=== PATIENT | male | born 1970 | race African-American/Black ===

== ENCOUNTER 2020-01-31 07:07 | Inpatient (IN) | payer SELFPAY ==
[2020-01-31] MEDS ORDERED: FUROSEMIDE 40 MG/4 ML VIAL ONE ×2 (07:35→09:38)
[2020-01-31 07:47] LABS: Basophils % 1.3 % (0-1.3); Hematocrit 29.6 % (39.6-49.0); Lymphocytes % 20.4 % (15.3-44.8); MPV 8.7 fL (7.6-11.3); RBC Red Blood Cell Count 3.49 M/uL (4.33-5.43)
[2020-01-31 07:49] LABS: Protime INR 1.01
[2020-01-31] MEDS ORDERED: METHYLPREDNISOLONE 125 MG INJ ONE (07:50)
[2020-01-31] MEDS ORDERED: NITROGLYCERIN 1 GM PKT TD ONE ×2 (07:50→08:09)
[2020-01-31] MEDS ORDERED: IPRATROPIUM BROM 0.5MG/2.5ML ONE (07:51)
[2020-01-31] MEDS ORDERED: LEVALBUTEROL 1.25 MG/3 ML NEB ONE (07:51)
[2020-01-31 08:21] LABS: Arterial Blood Carboxyhemoglob 1.6 % (0-1.5); Blood Gas Oxyhemoglobin 90.9 % (94-97); Blood O2 Saturation 93.3 % (92-98.5)
[2020-01-31 08:27] LABS: ALT/SGPT 43 U/L (12-78); AST/SGOT 45 U/L (15-37); Albumin 1.6 g/dL (3.4-5.0); Alkaline Phosphatase 88 U/L (45-117); BUN Blood Urea Nitrogen 36 mg/dL (7-18); Bicarbonate 25 mmol/L (21-32); Bilirubin Direct < 0.1 mg/dL (0-0.2); Bilirubin Total 0.2 mg/dL (0.2-1.0); Glucose Level 105 mg/dL (74-106); Magnesium 1.2 mg/dL (1.8-2.4); Potassium 3.1 mmol/L (3.5-5.1); Protein, Total 4.9 g/dL (6.4-8.2); Sodium Level 147 mmol/L (136-145); Troponin I 0.19 ng/mL (0.0-0.045)
--- NOTE | 2020-01-31 08:46 | EDPHYS ---
Physician Documentation [facility] Name: Macario Hubbard Age: 49 yrs Sex: Male : 1970 Arrival Date: 01/31/2020 Time: 07:11 Bed 6 Private MD: ED Physician Donte Wood HPI: 01/30 07:30 This 49 yrs old Black Male presents to ER via EMS with complaints of Shortness Of jose Breath. 07:30 The patient has shortness of breath at rest, with light activity, that woke him/her jose from sleep. Onset: The symptoms/episode began/occurred 2 day(s) ago. Duration: The symptoms are continuous, and are steadily getting worse. The patient's shortness of breath is aggravated by exertion, light activity, supine position. Associated signs and symptoms: Pertinent positives: non-productive cough. Severity of symptoms: At their worst the symptoms were mild moderate in the emergency department the symptoms are unchanged. The patient has experienced similar episodes in the past, a few times. Historical: - Allergies: 07:19 Tramadol HCl; tw2 - Home Meds: 07:19 carvedilol 25 mg oral tab 1.5 tab 2 times per day [Active]; furosemide 20 mg Oral tab 1 tw2 tab once daily [Active]; furosemide 40 mg Oral tab 1 tab 2 times per day [Active]; atorvastatin 20 mg oral tab 1 tab once daily [Active]; ferrous sulfate 325 mg (65 mg iron) Oral TbEC [Active]; pantoprazole 40 mg oral TbEC 1 tab once daily [Active]; - PMHx: 07:19 Diabetes - NIDDM; Myocardial infarction; CVA; tw2 10:07 Hepatitis; CHF; High Cholesterol; jl7 - PSHx: 07:19 Heart stents; Hernia repair; tw2 - Immunization history:: Adult Immunizations. - Social history:: Smoking status: . - Family history:: not pertinent. ROS: 07:30 Constitutional: Negative for fever, chills, and weight loss, Eyes: Negative for injury, jose pain, redness, and discharge, ENT: Negative for injury, pain, and discharge, Neck: Negative for injury, pain, and swelling, Cardiovascular: Negative for chest pain, palpitations, and edema, Abdomen/GI: Negative for abdominal pain, nausea, vomiting, diarrhea, and constipation, Back: Negative for injury and pain, : Negative for injury, bleeding, discharge, and swelling, Skin: Negative for injury, rash, and discoloration, Neuro: Negative for headache, weakness, numbness, tingling, and seizure. 07:30 Respiratory: Positive for cough, orthopnea, shortness of breath, wheezing. 07:30 MS/extremity: Positive for swelling, of the right leg and left leg. Exam: 07:30 Constitutional: This is a well developed, well nourished patient who is awake, alert, jose and in no acute distress. Head/Face: Normocephalic, atraumatic. Eyes: Pupils equal round and reactive to light, extra-ocular motions intact. Lids and lashes normal. Conjunctiva and sclera are non-icteric and not injected. Cornea within normal limits. Periorbital areas with no swelling, redness, or edema. ENT: Nares patent. No nasal discharge, no septal abnormalities noted. Tympanic membranes are normal and external auditory canals are clear. Oropharynx with no redness, swelling, or masses, exudates, or evidence of obstruction, uvula midline. Mucous membranes moist. Neck: Trachea midline, no thyromegaly or masses palpated, and no cervical lymphadenopathy. Supple, full range of motion without nuchal rigidity, or vertebral point tenderness. No Meningismus. Chest/axilla: Normal chest wall appearance and motion. Nontender with no deformity. No lesions are appreciated. Cardiovascular: Regular rate and rhythm with a normal S1 and S2. No gallops, murmurs, or rubs. Normal PMI, no JVD. No pulse deficits. Abdomen/GI: Soft, non-tender, with normal bowel sounds. No distension or tympany. No guarding or rebound. No evidence of tenderness throughout. Back: No spinal tenderness. No costovertebral tenderness. Full range of motion. Male : Normal genitalia with no discharge or lesions. Skin: Warm, dry with normal turgor. Normal color with no rashes, no lesions, and no evidence of cellulitis. 07:30 Respiratory: mild respiratory distress is noted, Respirations: labored breathing, that is mild, that is moderate, Breath sounds: rales, that are mild, are located in both bases, decreased breath sounds, wheezing: expiratory 07:30 Musculoskeletal/extremity: ROM: full active range of motion, full passive range of motion, Circulation is intact in all extremities. Sensation intact. Compartment Syndrome exam of affected extremity: is normal. DVT Exam: no pain, no tenderness, negative Homans' sign noted on exam, no appreciated bluish discoloration, no erythema, no increased warmth, swelling. Vital Signs: 07:11 BP 160 / 107; Pulse 100; Resp 28; Temp 98.8(TE); Pulse Ox 97% on R/A; Weight 113.4 kg tw2 (R); Height 5 ft. 10 in. (177.80 cm); Pain 0/10; 08:18 BP 158 / 113; Pulse 90; Resp 23; Pulse Ox 100% on Nebulizer Mask; jl7 08:30 BP 158 / 112; Pulse 88; Resp 26; Pulse Ox 100% on 2 lpm NC; jl7 09:00 BP 163 / 119; Pulse 104; Resp 15; Pulse Ox 100% on 2 lpm NC; jl7 09:30 BP 154 / 115; Pulse 85; Resp 22 S; Pulse Ox 100% on 2 lpm NC; jl7 10:30 BP 140 / 104; Pulse 79; Resp 19; Pulse Ox 100% on 2 lpm NC; tw2 11:30 BP 136 / 105; Pulse 76; Resp 17; Pulse Ox 100% on 2 lpm NC; tw2 12:10 BP 143 / 109; Pulse 75; Resp 19; Pulse Ox 100% 2 lpm ; jl7 07:11 Body Mass Index 35.87 (113.40 kg, 177.80 cm) tw2 07:11 pt c/o SOB and has increase RR, placed on 2L nc at this time tw2 MDM: 07:21 Patient medically screened. jose 07:34 Differential diagnosis: asthma, Bronchitis CHF exacerbation, Chronic Obstructive jose Pulmonary Disease Myocardial Infarction pneumonia, Pneumothorax Psychogenic pulmonary edema, Pulmonary Embolism reactive airway disease, Unstable Angina. Antibiotic administration: Not indicated. The patient's Wells Deep Vein Thrombosis Score was calculated as follows: Total Score: 0-2 Pts- Low Risk. The patient's pulmonary embolism risk score was calculated as follows: Total Score: 0-2 points. This patient was found to be at low risk for a pulmonary embolism by using the Well's assessment criteria. Immunization status:. Data reviewed: vital signs, nurses notes, lab test result(s), EKG, radiologic studies. Data interpreted: cook helper preserves: rate is 100 beats/min, rhythm is regular, Pulse oximetry: on room air is 97 %. Test interpretation: by ED physician or midlevel provider: ECG, plain radiologic studies. Counseling: I had a detailed discussion with the patient and/or guardian regarding: the historical points, exam findings, and any diagnostic results supporting the discharge/admit diagnosis, the presence of at least one elevated blood pressure reading (>120/80) during this emergency department visit, lab results, radiology results, the need for further work-up and treatment in the hospital. Medication response: lasix, mso4, nebs. 08:37 ED course: sob improved. [facility] 01/30 07:30 Order name: Basic Metabolic Panel [facility] 01/30 07:30 Order name: CBC with Diff [facility] 01/30 07:30 Order name: LFT's [facility] 01/30 07:30 Order name: Magnesium [facility] 01/30 07:30 Order name: PT-INR [facility] 01/30 07:30 Order name: Troponin (emerg Dept Use Only) [facility] 01/30 08:11 Order name: CBC with Automated Diff; Complete Time: 08:32 [facility] 01/30 08:11 Order name: Protime (+INR); Complete Time: 08:32 [facility] 01/30 08:23 Order name: ABG Arterial Blood Gas; Complete Time: 08:32 [facility] 01/30 08:30 Order name: Basic Metabolic Panel; Complete Time: 08:32 [facility] 01/30 08:30 Order name: Liver (Hepatic) Function; Complete Time: 08:32 [facility] 01/30 08:30 Order name: Troponin I; Complete Time: 08:32 [facility] 01/30 08:30 Order name: Magnesium; Complete Time: 08:32 [facility] 01/30 10:07 Order name: COVID-19 01/30 07:30 Order name: XRAY Chest (1 view) [facility] 01/30 07:30 Order name: BIPAP [facility] 01/30 08:35 Order name: CT Stone Protocol; Complete Time: 10:20 [facility] 01/30 08:42 Order name: Chest Single View; Complete Time: 10:20 [facility] 01/30 10:42 Order name: CORONAVIRUS [facility] 01/30 12:02 Order name: SARS-COV-2 RT PCR [facility] 01/30 12:09 Order name: Urine Dipstick--Ancillary (enter results) 01/30 07:30 Order name: EKG; Complete Time: 08:12 [facility] 01/30 07:30 Order name: Cardiac monitoring; Complete Time: 07:43 [facility] 01/30 07:30 Order name: EKG - Nurse/Tech; Complete Time: 07:34 jose 01/30 07:30 Order name: IV Saline Lock; Complete Time: 07:43 [facility] 01/30 07:30 Order name: Labs collected and sent; Complete Time: 07:43 [facility] 01/30 07:30 Order name: O2 Per Protocol; Complete Time: 07:43 [facility] 01/30 07:30 Order name: O2 Sat Monitoring; Complete Time: 07:43 [facility] 01/30 07:30 Order name: Urine Dipstick-Ancillary (obtain specimen); Complete Time: 12:07 [facility] Administered Medications: 07:25 Drug: Lasix 40 mg Route: IVP; Site: right wrist; tw2 09:38 Follow up: Urine output 0 ml; Response: No adverse reaction jl7 07:50 Drug: SOLU-Medrol 125 mg Route: IVP; Site: right wrist; jl7 09:38 Follow up: Response: No adverse reaction jl7 08:03 Drug: AtroVENT Aerosol 0.5 mg Route: Inhalation; jl7 11:52 Follow up: Response: No adverse reaction jl7 08:04 Drug: Nitro-Bid Ointment 2 % 1 inches Route: Transdermal; Site: anterior chest wall; jl7 09:20 Follow up: Response: No adverse reaction; Ointment removed per Dr. Jaimes jl7 08:04 Drug: Xopenex 2.5 mg Route: Inhalation; jl7 11:52 Follow up: Response: No adverse reaction jl7 09:10 Drug: Aspirin Chewable Tablet 324 mg Route: PO; jl7 09:37 Follow up: Response: No adverse reaction jl7 09:10 Drug: Pepcid 20 mg Route: IVP; Site: right wrist; jl7 09:37 Follow up: Response: No adverse reaction jl7 09:15 Drug: Potassium Effervescent Tablet 50 mEq Route: PO; jl7 09:37 Follow up: Response: No adverse reaction jl7 09:15 Drug: Magnesium Sulfate 1 grams Route: IVPB; Infused Over: 1 hrs; Site: right wrist; jl7 10:15 Follow up: Response: No adverse reaction; IV Status: Completed infusion jl7 09:25 Drug: Lasix 40 mg Route: IVP; Site: right wrist; jl7 11:51 Follow up: Urine output 300 ml; Response: No adverse reaction jl7 09:28 Not Given (Physician Discretion): Trandate 20 mg IVP once; Over 2 minutes jl7 09:28 Not Given (Physician Discretion): Heparin (SC-Bolus No thrombolytic) - HEParin 60 jl7 units/kg IVP once; Max 5000 units 09:28 Not Given (Physician Discretion): Heparin ([place] Drip) 12 units/kg/hr - (HEParin 49464 jl7 units, D5W 500 ml) IV at calculated rate Per protocol; Max initial rate 1000 units/hr 09:50 Drug: Coreg 25 mg Route: PO; jl7 10:30 Follow up: Response: No adverse reaction; Blood pressure is lowered jl7 Disposition: 01/31/20 08:45 Hospitalization ordered by Nick Jaimes for Inpatient Admission. Preliminary diagnosis are Dyspnea, Essential (primary) hypertension, Acute kidney failure, Hypomagnesemia, Hypocalcemia, Edema, unspecified, Type 2 diabetes mellitus, Hypokalemia, Non-ST elevation (NSTEMI) myocardial infarction, Pleural effusion in conditions classified elsewhere. - Bed requested for Telemetry/MedSurg (Inpatient). - Status is Inpatient Admission. jl7 - Condition is Fair. - Problem is new. - Symptoms have improved. Signatures: Dispatcher [employer] EDMartha Ontiveros RN RN dw Anderson, Corey, MD MD cha Wise, Tara RN RN tw2 Anna Pham RN RN jl7 Corrections: (The following items were deleted from the chart) 10: 08:45 Hospitalization Ordered by Nick Jaimes DO for Inpatient Admission. Preliminary jose diagnosis is Dyspnea; Essential (primary) hypertension; Acute kidney failure; Hypomagnesemia; Hypocalcemia; Edema, unspecified; Type 2 diabetes mellitus; Hypokalemia; Non-ST elevation (NSTEMI) myocardial infarction. Bed requested for Telemetry/MedSurg (Inpatient). Status is Inpatient Admission. Condition is Fair. Problem is new. Symptoms have improved. jose 12:13 10:21 01/31/2020 08:45 Hospitalization Ordered by Nick Jaimes DO for Inpatient dw Admission. Preliminary diagnosis is Dyspnea; Essential (primary) hypertension; Acute kidney failure; Hypomagnesemia; Hypocalcemia; Edema, unspecified; Type 2 diabetes mellitus; Hypokalemia; Non-ST elevation (NSTEMI) myocardial infarction; Pleural effusion in conditions classified elsewhere. Bed requested for Telemetry/MedSurg (Inpatient). Status is Inpatient Admission. Condition is Fair. Problem is new. Symptoms have improved. jose 12:38 12:13 01/31/2020 08:45 Hospitalization Ordered by Nick Jaimes DO for Inpatient jl7 Admission. Preliminary diagnosis is Dyspnea; Essential (primary) hypertension; Acute kidney failure; Hypomagnesemia; Hypocalcemia; Edema, unspecified; Type 2 diabetes mellitus; Hypokalemia; Non-ST elevation (NSTEMI) myocardial infarction; Pleural effusion in conditions classified elsewhere. Bed requested for Telemetry/MedSurg (Inpatient). Status is Inpatient Admission. Condition is Fair. Problem is new. Symptoms have improved. dw
--- NOTE | 2020-01-31 08:46 | ER ---
Nurse's Notes [facility] Name: Macario Hubbard Age: 49 yrs Sex: Male : 1970 Arrival Date: 01/31/2020 Time: 07:11 Bed 6 Private MD: Diagnosis: Dyspnea;Essential (primary) hypertension;Acute kidney failure;Hypomagnesemia;Hypocalcemia;Edema, unspecified;Type 2 diabetes mellitus;Hypokalemia;Non-ST elevation (NSTEMI) myocardial infarction;Pleural effusion in conditions classified elsewhere Presentation: 01/30 07:11 Chief complaint: EMS states: pt c/o SOB just this morning, hx CHF, hep B \T\ C, tw2 hypertensive this morning but did not take his blood pressure medicine. Coronavirus screen: At this time, the client does not indicate any symptoms associated with coronavirus-19. Ebola Screen: Patient denies travel to an Ebola-affected area in the 21 days before illness onset. Initial Sepsis Screen: Does the patient meet any 2 criteria? RR > 20 per min. HR > 90 bpm. Does the patient have a suspected source of infection? No. Patient's initial sepsis screen is negative. Risk Assessment: Do you want to hurt yourself or someone else? Patient reports no desire to harm self or others. Onset of symptoms was January 31, 2020. 07:11 Method Of Arrival: EMS: [facility] tw2 07:11 Acuity: TIGRE 2 tw2 07:19 Note MD notified of pts condition. tw2 Triage Assessment: 07:15 General: Appears in no apparent distress. Behavior is calm, cooperative, appropriate tw2 for age. Pain: Denies pain. Cardiovascular: Edema is 3+ to left midcalf, left ankle, right midcalf and right ankle. Respiratory: Reports shortness of breath at rest on exertion Onset: The symptoms/episode began/occurred this morning, the patient has moderate shortness of breath. Historical: - Allergies: 07:19 Tramadol HCl; tw2 - Home Meds: 07:19 carvedilol 25 mg oral tab 1.5 tab 2 times per day [Active]; furosemide 20 mg Oral tab 1 tw2 tab once daily [Active]; furosemide 40 mg Oral tab 1 tab 2 times per day [Active]; atorvastatin 20 mg oral tab 1 tab once daily [Active]; ferrous sulfate 325 mg (65 mg iron) Oral TbEC [Active]; pantoprazole 40 mg oral TbEC 1 tab once daily [Active]; - PMHx: 07:19 Diabetes - NIDDM; Myocardial infarction; CVA; tw2 10:07 Hepatitis; CHF; High Cholesterol; jl7 - PSHx: 07:19 Heart stents; Hernia repair; tw2 - Immunization history:: Adult Immunizations. - Social history:: Smoking status: . - Family history:: not pertinent. Screenin:19 Abuse screen: Denies threats or abuse. Nutritional screening: No deficits noted. tw2 Tuberculosis screening: No symptoms or risk factors identified. Fall Risk None identified. Assessment: 07:25 General: Appears in no apparent distress. Behavior is calm, cooperative, appropriate tw2 for age. Pain: Denies pain. Neuro: Level of Consciousness is awake, alert, obeys commands, Oriented to person, place, time, situation. Cardiovascular: Heart tones S1 S2 Patient's skin is warm and dry. Rhythm is regular. Cardiovascular: Edema is 3+ to left midcalf, left ankle, right midcalf and right ankle. Respiratory: Airway is patent Respiratory effort is even, unlabored, Respiratory pattern is regular, symmetrical, tachypnea Breath sounds with wheezes bilaterally. GI: No signs and/or symptoms were reported involving the gastrointestinal system. Abdomen is round non-distended, obese, Bowel sounds present X 4 quads. : Reports swelling in testicles. EENT: No signs and/or symptoms were reported regarding the EENT system. Derm: No signs and/or symptoms reported regarding the dermatologic system. Skin is intact, is healthy with good turgor, Skin is dry, Skin temperature is warm. Musculoskeletal: Range of motion: intact in all extremities. 07:26 Reassessment: provider at bedside at this time. tw2 08:43 Reassessment: Patient appears in no apparent distress at this time. Patient and/or tw2 family updated on plan of care and expected duration. Pain level reassessed. Patient is alert, oriented x 3, equal unlabored respirations, skin warm/dry/pink. Patient states feeling better. Patient states symptoms have improved. 09:20 Reassessment: Dr. Jaimes at bedside, VO to cancel heparin and cancel Trandate, VO for jl7 additional 40 mg Lasix IVP. 11:47 Reassessment: Dr. Gann at bedside. jl7 Vital Signs: 07:11 BP 160 / 107; Pulse 100; Resp 28; Temp 98.8(TE); Pulse Ox 97% on R/A; Weight 113.4 kg tw2 (R); Height 5 ft. 10 in. (177.80 cm); Pain 0/10; 08:18 BP 158 / 113; Pulse 90; Resp 23; Pulse Ox 100% on Nebulizer Mask; jl7 08:30 BP 158 / 112; Pulse 88; Resp 26; Pulse Ox 100% on 2 lpm NC; jl7 09:00 BP 163 / 119; Pulse 104; Resp 15; Pulse Ox 100% on 2 lpm NC; jl7 09:30 BP 154 / 115; Pulse 85; Resp 22 S; Pulse Ox 100% on 2 lpm NC; jl7 10:30 BP 140 / 104; Pulse 79; Resp 19; Pulse Ox 100% on 2 lpm NC; tw2 11:30 BP 136 / 105; Pulse 76; Resp 17; Pulse Ox 100% on 2 lpm NC; tw2 12:10 BP 143 / 109; Pulse 75; Resp 19; Pulse Ox 100% 2 lpm ; jl7 07:11 Body Mass Index 35.87 (113.40 kg, 177.80 cm) tw2 07:11 pt c/o SOB and has increase RR, placed on 2L nc at this time tw2 ED Course: 07:11 Patient arrived in ED. tw2 07:11 Bed in low position. Call light in reach. Side rails up X 1. conveyor monitor on. Pulse tw2 ox on. NIBP on. 07:15 Triage completed. tw2 07:15 Arm band placed on. EKG completed in triage. Results shown to MD. tw2 07:20 Missed attempt(s): 20 gauge in left wrist. Bleeding controlled, band aid applied, jl7 catheter tip intact. 07:21 Donte Wood MD is Attending Physician. jose 07:25 Initial lab(s) drawn, by co, sent to lab. Inserted saline lock: 20 gauge in right jl7 wrist, using aseptic technique. Blood collected. 07:34 EKG done, by ED staff, reviewed by Donte Wood MD. em1 07:44 Anna Pham RN is Primary Nurse. jl7 08:30 Notified ED physician of a critical lab result(s). Calcium 6.1 and Magnesium 1.2. aa5 08:[address] sw 08:43 Nick Jaimes DO is Hospitalizing Provider. jose 08:47 Chest Single View In Process Unspecified. EDMS 08:50 CT completed. Patient tolerated procedure well. Patient moved back from CT. sw 08:57 CT Stone Protocol In Process Unspecified. EDMS 12:10 Covid results back Negative per Florencia in Er. Room assigned. dw 12:19 No provider procedures requiring assistance completed. Patient admitted, IV remains in jl7 place. intact, No redness/swelling at site. Administered Medications: 07:25 Drug: Lasix 40 mg Route: IVP; Site: right wrist; tw2 09:38 Follow up: Urine output 0 ml; Response: No adverse reaction jl7 07:50 Drug: SOLU-Medrol 125 mg Route: IVP; Site: right wrist; jl7 09:38 Follow up: Response: No adverse reaction jl7 08:03 Drug: AtroVENT Aerosol 0.5 mg Route: Inhalation; jl7 11:52 Follow up: Response: No adverse reaction jl7 08:04 Drug: Nitro-Bid Ointment 2 % 1 inches Route: Transdermal; Site: anterior chest wall; jl7 09:20 Follow up: Response: No adverse reaction; Ointment removed per Dr. Jaimes jl7 08:04 Drug: Xopenex 2.5 mg Route: Inhalation; jl7 11:52 Follow up: Response: No adverse reaction jl7 09:10 Drug: Aspirin Chewable Tablet 324 mg Route: PO; jl7 09:37 Follow up: Response: No adverse reaction jl7 09:10 Drug: Pepcid 20 mg Route: IVP; Site: right wrist; jl7 09:37 Follow up: Response: No adverse reaction jl7 09:15 Drug: Potassium Effervescent Tablet 50 mEq Route: PO; jl7 09:37 Follow up: Response: No adverse reaction jl7 09:15 Drug: Magnesium Sulfate 1 grams Route: IVPB; Infused Over: 1 hrs; Site: right wrist; jl7 10:15 Follow up: Response: No adverse reaction; IV Status: Completed infusion jl7 09:25 Drug: Lasix 40 mg Route: IVP; Site: right wrist; jl7 11:51 Follow up: Urine output 300 ml; Response: No adverse reaction jl7 09:28 Not Given (Physician Discretion): Trandate 20 mg IVP once; Over 2 minutes jl7 09:28 Not Given (Physician Discretion): Heparin ([place]-Bolus No thrombolytic) - HEParin 60 jl7 units/kg IVP once; Max 5000 units 09:28 Not Given (Physician Discretion): Heparin ([place] Drip) 12 units/kg/hr - (HEParin 97417 jl7 units, D5W 500 ml) IV at calculated rate Per protocol; Max initial rate 1000 units/hr 09:50 Drug: Coreg 25 mg Route: PO; jl7 10:30 Follow up: Response: No adverse reaction; Blood pressure is lowered jl7 Intake: Output: 09:38 Urine: 0ml; Total: 0ml. jl7 11:51 Urine: 300ml; Total: 300ml. jl7 Outcome: 08:45 Decision to Hospitalize by Provider. jose 12:19 Admitted to Tele accompanied by tech, via wheelchair, room 206, with oxygen, with jl7 chart, Report called to FREEMAN Richter 12:19 Condition: stable 12:19 Discharge instructions given to patient, Instructed on the need for admit, Demonstrated understanding of instructions. 12:38 Patient left the ED. jl7 Signatures: Dispatcher [employer] Martha Estrada RN RN dw Anderson, Corey, MD MD cha Martinez, Eric em1 Florencia Fabian, FREEMAN RN aa5 Loren May Tara RN RN tw2 Anna Pham RN RN jl7 Corrections: (The following items were deleted from the chart) 08:21 08:17 Reassessment: pt placed on bipap at this time. tw2 tw2 08:23 08:18 Pulse 90bpm; Resp 16bpm; Pulse Ox 100% BiPAP; tw2 tw2 10:15 08:18 BP 158 / 113; Pulse 90bpm; Resp 16bpm; Pulse Ox 100% Nebulizer Mask; tw2 jl7
[2020-01-31] MEDS ORDERED: HEPARIN 5000 UNIT/ML 1 ML VIAL ONE (08:58)
[2020-01-31] MEDS ORDERED: ASPIRIN 81 MG CHEWABLE TABLET ONE (08:58)
[2020-01-31] MEDS ORDERED: MAGNESIUM SULFATE 1 gm IVPB 1 GM/100 ML BAG IV ONE (08:58)
[2020-01-31] MEDS ORDERED: POTASSIUM 25 MEQ EFFERV TAB ONE (08:58)
[2020-01-31] MEDS ORDERED: LABETALOL 20 MG/4ML SYRINGE IV ONE (08:58)
[2020-01-31] MEDS ORDERED: FAMOTIDINE 20 MG/2 ML VIAL IV ONE (08:59)
[2020-01-31] MEDS ORDERED: HEPARIN/D5W 0 UNIT/0 ML BAG IV ONE (08:59)
--- NOTE | 2020-01-31 09:26 | RAD REPORT ---
EXAM DESCRIPTION: CT - Stone Protocol - 01/31/2020 8:54 am CLINICAL HISTORY: Abdominal pain. Flank pain COMPARISON: 2016 TECHNIQUE: Computed axial tomography of the abdomen pelvis was obtained without oral or IV contrast. Lack of IV and oral contrast limits evaluation of solid organs, bowel, and vessels. Coronal reformat fanny images were obtained and reviewed. All CT scans are performed using dose optimization technique as appropriate and may include automated exposure control or mA/KV adjustment according to patient size. FINDINGS: A renal calculus is not seen. An ureteral calculus is not noted. A bladder calculus is not present. Renal cysts without significant change 20 millimeter hepatic lesion left lobe liver is enlarged from the prior exam which measured 12 millim eters Spleen, pancreas and adrenals appear grossly normal There is no evidence of diverticulitis. The appendix appears normal Small pleural effusions. Diffuse edema within the subcutaneous tissues. Small amount of ascites. Left inguinal hernia repair. Small to moderate right inguinal hernia. Small hiatal hernia Ground-glass opacities right lower lobe IMPRESSION: Negative for a genitourinary calculus 20 millimeter hepatic lesion increased in size from 2016. Nonemergent MRI with contrast recommended Ground-glass opacities right lower lobe may indicate pneumonia or pneumonitis
--- NOTE | 2020-01-31 09:27 | RAD REPORT ---
EXAM DESCRIPTION: [place] Single View01/31/2020 8:18 am CLINICAL HISTORY: Shortness of breath COMPARISON: 2016 FINDINGS: Small bilateral pleural effusions. Mild right basilar opacity. The heart is normal size IMPRESSION: Small bilateral pleural effusions Mild right basilar opacity may represent pneumonia or pneumonitis
--- NOTE | 2020-01-31 09:42 | P.HP ---
Certification for Inpatient Patient admitted to: Inpatient With expected LOS: >2 Midnights Patient will require the following post-hospital care: None Practitioner: I am a practitioner with admitting privileges, knowledge of patient current condition, hospital course, and medical plan of care. Services: Services provided to patient in accordance with Admission requirements found in Title 42 Section 412.3 of the Code of Federal Regulations Patient History Date of Service: 01/31/20 Primary Care Provider: None, seen at [facility]; Nephrology-Dr. Skinner Reason for admission: Shortness of breath, edema History of Present Illness: 49-year-old male with history of hypertension, CAD with prior stent, CHF, hepatitis-C, tobacco abuse and chronic renal disease. Patient reported increasing shortness of breaths over the last 24 hr. He also reported increasing edema to the lower extremities up to the thigh region. Kim ent mentioned that he had been at the [facility] about a month ago. He was seen for similar reasons. He was initially seen at [facility] [place] then transfer to [place]. There he had a heart catheterization, renal biopsy, and IV diuresis. He has not recall any other specifics. He does mention that he ran out of his diuretic medication within the past week. He was without medication for at least 3 days. He also reports that his Lasix had been increased from 20 mg daily to 120 mg twice daily. He denied any significant chest pain. He did report some nausea and vomiting. He does mention a fluid restriction at home. He came to the ER for further evaluation. In the ER patient was evaluated. Blood pressures were elevated at 160/107. Room-air saturations 97% on room air. Patient slightly tachypneic. Blood gases showed a pH is 7.45, PA CO2 of this 35, PO2 of 68. Sodium 147 come potassium 3.1, BUN of 36, creatinine 4.2 with a GFR of 18. Troponin 0.19, magnesium 1.2, calcium 6.1. AST 45, ALT 43. Prior creatinine in 2018 was 0.97 with a GFR of greater than 90 at that time. Chest x-ray showed pleural effusions. Patient was given IV diuretic therapy in the emergency room. Patient admitted for further evaluation and treatment. When I saw the patient ER, patient appeared stable. Patient on nasal cannula. Blood pressure slightly improved. Patient further reports that he has underlying hepatitis-C. He is in the process of getting treated for this. He has not followed up with any of his specialist. He has no PCP. Most of his care has been done through [facility]. Allergies tramadol Allergy (Verified 09/12/15 01:45) Itching Tramadol HCl Allergy (Uncoded 10/27/15 22:23) Unknown Home medications list reviewed: Yes Home Medications: Metoprolol Tartrate [Lopressor*] 25 mg PO BID #60 tab 09/12/15 - Past Medical/Surgical History Diabetic: No -: Hypertension -: Chronic renal disease stage IV -: CAD with prior stent -: History of CVA -: GERD -: Congestive heart failure likely systolic -: Anemia of chronic disease, iron deficiency -: Tobacco abuse -: Cardiac stent 2011 -: hernia repair 1997 -: Family History: Not pertinent Psychosocial/ Personal History: Patient is - Family History Family History: Reviewed- Non-Contributory - Social History Smoking Status: Light Tobacco smoker (1-9 cigarettes/day) Counseled patient to stop smoking for: less than 10 minutes Smoking therapy provided: Yes Patient receptive to therapy: Yes Alcohol use: No CD- Drugs: No Caffeine use: Yes Place of Residence: Home Review of Systems General: Weakness, As per HPI Eyes: Unremarkable ENT: Unremarkable Respiratory: Shortness of Breath, SOB with Excertion, As per HPI Cardiovascular: Edema, As per HPI Gastrointestinal: Nausea, Vomiting, As per HPI Genitourinary: Unremarkable Musculoskeletal: Pedal edema, As per HPI Integumentary: Unremarkable Neurological: Unremarkable Lymphatics: Unremarkable Physical Examination - Physical Exam General: Alert, In no apparent distress, Oriented x3, Cooperative HEENT: Atraumatic, Normocephalic, Mucous membr. moist/pink Neck: Supple Respiratory: Diminished (Diminished to the bases bilateral) Cardiovascular: Normal pulses, Regular rate/rhythm Gastrointestinal: Normal bowel sounds, Soft and benign, Non-distended, No tenderness, No masses, No rebound, No guarding Musculoskeletal: No erythema, No tenderness, No warmth Integumentary: Tenderness/swelling (2+ pitting edema to the lower extremities bilateral up to the thigh region) Neurological: Normal speech, Normal strength at 5/5 x4 extr, Normal tone, Normal affect - Studies Laboratory Data (last 24 hrs) 01/31/20 07:25: PT 11.9, INR 1.01 01/31/20 07:25: WBC 10.0, Hgb 10.2 L, Hct 29.6 L, Plt Count 284 01/31/20 07:25: Sodium 147 H, Potassium 3.1 L, BUN 36 H, Creatinine 4.20 H, Glucose 105, Magnesium 1.2 L*, Total Bilirubin 0.2, AST 45 H, ALT 43, Alkaline Phosphatase 88, Troponin I 0.19 H Assessment and Plan - Plan Impression: Dyspnea secondary to acute on chronic suspected systolic CHF with pleural effusions that are likely chronic Acute on chronic renal disease stage IV Hypertension, uncontrolled Elevated troponin likely related to above with history of CAD and prior stent History of CVA Hepatitis-C Tobacco abuse Anemia of chronic disease Hypomagnesia, Hypocalcemia, hypokalemia Plan: Dyspnea secondary to acute on chronic suspected systolic CHF with pleural effusions that are likely chronic: Patient will be admitted for further evaluation and treatment. Will start Lasix 80 mg IV twice daily. Patient may require more diuretic therapy. Will continue 1500 cc per day fluid restriction. Will obtain echocardiogram and renal ultrasound. Will consult cardiology and nephrology. Will also try to get records from [facility] as the patient had a recent heart catheterization, renal biopsy likely within the past month. Continue to monitor closely. Wean off oxygen. Recheck chest x-ray tomorrow. Anticipate improvement over the next 48-72 hr. Acute on chronic renal disease stage IV: Patient with worsening renal function since 2018. Will need to obtain recent renal biopsy done at [facility]. Case discussed with nephrology. Continue with diuresis. If his condition continues today decline, patient will require dialysis. Will monitor closely. Hypertension, uncontrolled: Restart carvedilol. Will provide IV hydralazine if required. May need additional medication for better control. Elevated troponin likely related to above with history of CAD and prior stent: Will start aspirin. Will continue to monitor closely. Will obtain recent heart catheterization performed at [facility]. Echocardiogram to be obtained. Consult cardiology for further recommendation. History of CVA: Continue aspirin. Patient will be placed on DVT prophylaxis. Hepatitis-C: Patient reports that he has seen GI recently. He is being considered for treatment. Tobacco abuse: Tobacco cessation addressed in detail. Patient made need nicotine patch. Anemia of chronic disease: Will monitor closely. Continue iron supplementation. Hypomagnesia, Hypocalcemia, hypokalemia: Will replace magnesium. Await recommendations from nephrology concerning low calcium/potassium. Discharge Plan: Home Plan to discharge in: 72 Hours - Advance Directives Does patient have a Living Will: No Does patient have a Durable POA for Healthcare: No - Code Status/Comfort Care Code Status Assessed: Yes (Patient is full code) Time Spent Managing Pts Care (In Minutes): 55
[2020-01-31] MEDS ORDERED: carvediloL 25 MG TAB PO ONE (09:45)
--- NOTE | 2020-01-31 10:44 | EKG ---
Test Date: 2020-01-31 Test Time: 07:17:20 Procurement Consultant: MELVINA MEASUREMENT RESULTS: Intervals: Rate: 103 VA: 168 QRSD: 116 QT: 306 QTc: 400 [place]: P: 38 VA: 168 QRS: 101 T: 67 INTERPRETIVE STATEMENTS: Sinus tachycardia with fusion complexes Low voltage QRS Right bundle branch block Abnormal ECG Compared to ECG 06/12/2017 20:15:40 Fusion complex(es) now present Low QRS voltage now present Sinus rhythm no longer present Myocardial infarct finding no longer present Electronically Signed On 01-31-20 10:43:26 CDT by Asif Dougherty
[2020-01-31] MEDS ORDERED: MAGNESIUM 50% 3 GM in NA CHLORIDE 0.9% 100 ML IV ONE (12:38)
[2020-01-31 12:46] LABS: Urine Blood 2+ (NEG); Urine Glucose NEGATIVE (NEG); Urine Protein 3+ (NEG); Urine pH 5.5 (5.0-7.0)
[2020-01-31] MEDS ORDERED: HYDRALAZINE HCL 20 MG/ML VIAL IV PRN (12:56)
[2020-01-31] MEDS ORDERED: ACETAMINOPHEN 500 MG TAB PO PRN (12:56)
[2020-01-31] MEDS ORDERED: ONDANSETRON 4 MG/2 ML VIAL IV PRN (12:56)
--- NOTE | 2020-01-31 13:20 | CON ---
Date of Consultation: 01/31/2020 Reason For Consultation: Elevated BUN and creatinine, anasarca, fluid management. History Of Present Illness: This is a 49-year-old gentleman with significant past medical history of hypertension, coronary artery disease status post PTCA complicated with congestive heart failure, hep C, the patient had chronic kidney disease stage 4 secondary to cardiorenal with MPGN confirmed with biopsy done back in December 21, 2019. At that time, the patient recommended to start hip C treatment. The patient was started on prednisone. Apparently, the patient did not follow up to continue on the hip C treatment because of lack of insurance. The patient on the last few days started to have increase in his leg swelling with orthopnea. For that reason, he reported to the hospital. The patient apparently ran out of from his diuresis. Upon arrival to our hospital, chest x-ray showing some cardiomegaly, lab showing elevation in BUN and creatinine, creatinine 4.2, GFR down to 18. Back when he left [place], at [facility], creatinine 2.5, GFR above 30. The patient in the hospital had been over volume with high blood pressure. For that reason, we have been consulted. The patient denied taking any nonsteroidal. No IV contrast. Past Medical History: Includes; 1. Hypertension. 2. Chronic kidney disease, stage 3B/4. 3. Coronary artery disease complicated with congestive heart failure. 4. CVA. 5. Anemia. 6. 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 Past Surgical History: Includes; 1. Kidney biopsy. 2. PTCA back in 2011. 3. Hernia repair in 1997. Family History: Positive for hypertension. Social History: Active smoker. Denied alcohol. Denied drug abuse. Review of Systems: Head and Neck: No red eye. No ear pain. GI: No nausea. No vomiting. : Decreased urine output. Flame Cutter: Not applicable. Respiratory: Has shortness of breath. Cardiovascular: Has leg swelling. Endocrine: No polydipsia. Skin: No rash. Neuro: Has leg pain. Musculoskeletal: Generalized fatigue. Physical Examination: Vital Signs: When I saw the patient, blood pressure 136/88, pulse of 88. Chest: Crackles bilateral. Heart: S1, S2. Systolic murmur. Abdomen: Soft, nontender. Extremities: +1 edema. Neuro: Alert and oriented x3. No focal. Laboratory Data: WBC 10, H and H 10.2/29.6, platelet 284. Sodium 147, potassium 3.1, bicarb 25, BUN 36, creatinine 4.2, GFR of 18, calcium 6.1, magnesium 1.2, albumin 1.6. Assessment And Plan: 1. 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 I had long discussion with the patient that he needs to be started on treatment for hepatitis C, otherwise current treatment not going to help all the symptomatic. I am going to go ahead and start the patient on prednisone 60 mg daily and we will follow up. I am going to go ahead and send for repeated protein creatinine and renal ultrasound and we will follow up the patient. Record has been obtained from [facility]. We will place in the chart. 2. Hypertension. We will utilize the blood pressure for more diuresis. I am going to be hesitant to add any JUNG inhibitor or ARB for the time being given the worsening. 3. Anasarca secondary mostly to renal failure, nephrotic range of proteinuria. We will send for TSH. We will start the patient on diuresis. We will start the patient on prednisone. I had long discussion with Dr. Jaimes that the patient needs to start hepatitis treatment. We are going to communicate with hepatology [facility] and we will follow up. 4. Hypertension. We will utilize the blood pressure for more diuresis. 5. Coronary artery disease with over volume. We will follow up with Cardiology. We will optimize diuresis. Time spent coordinating the care, discuss him with all of our team members including othere medical cost consultant and hospitalist and [id number] with the patient and please go out of 65 min SIMON Voice ID: [id number] Report ID: [id number] GASPER
[2020-01-31 14:34] LABS: CKMB Creatine Kinase MB 6.6 ng/mL (0.3-3.6); Troponin I 0.19 ng/mL (0.0-0.045)
[2020-01-31] MEDS ORDERED: PNEUMOCOCCAL VACCINE 0.5 ML IMVAC ONE (16:00)
[2020-01-31] MEDS ORDERED: CALCIUM CARBONATE CHEW 500MG TAB PO SCH (16:30)
[2020-01-31 16:51] LABS: Barbiturates NEGATIVE (NEGATIVE); Benzodiazepines NEGATIVE (NEGATIVE); Cocaine NEGATIVE (NEGATIVE); METHAMPHETAM NEGATIVE (NEGATIVE); Opiates NEGATIVE (NEGATIVE); Phencyclidine NEGATIVE (NEGATIVE); THC Cannibis NEGATIVE (NEGATIVE)
[2020-01-31 16:57] LABS: Methadone NEGATIVE (NEGATIVE)
[2020-01-31] MEDS ORDERED: FUROSEMIDE 40 MG/4 ML VIAL IV SCH (17:00)
[2020-01-31] MEDS: FUROSEMIDE 40 MG/4 ML VIAL IV SCH (18:34)
[2020-01-31] MEDS: carvediloL 25 MG TAB PO SCH (18:35)
--- NOTE | 2020-01-31 19:27 | RAD REPORT ---
EXAM DESCRIPTION: US - Renal Ultrasound-Complete - 01/31/2020 7:07 pm CLINICAL HISTORY: Acute on chronic renal disease stage IV Flank pain COMPARISON: Stone Protocol dated 01/31/2020; Abdomen W Contrast dated 09/12/2015 FINDINGS: Both kidneys are mildly echogenic. The right kidney measures 11.8 x 6.8 x 5.3 cm. No hydronephrosis, focal mass or perinephric fluid. The left kidney measures 11.8 x 6.5 x 4.3 cm. Slightly complex hypoechoic lesion is seen in the laly x left kidney measuring 21 x 18 x 17 mm. No hydronephrosis, focal mass or perinephric fluid. The urinary bladder is incompletely distended without gross abnormality seen. IMPRESSION: Mildly echogenic kidneys bilaterally suggesting medical renal disease. Mildly complex cystic lesion is seen mid left kidney. This is likely benign, however follow-up renal ultrasound may be considered 6 to 12 months for monitoring.
[2020-01-31] MEDS: HEPARIN 5000 UNIT/ML 1 ML VIAL SQ SCH (20:52)
[2020-01-31 21:02] LABS: CKMB Creatine Kinase MB 7.2 ng/mL (0.3-3.6); Troponin I 0.14 ng/mL (0.0-0.045)
[2020-01-31] MEDS: POTASSIUM CL SA 10 MEQ TAB PO ONE (23:17)
[2020-02-01 04:43] LABS: Absolute Lymphocytes (CBC) 1.3 K/uL (0.7-4.9); Basophils % 0.3 % (0-1.3); Hematocrit 27.4 % (39.6-49.0); Lymphocytes % 9.2 % (15.3-44.8); RBC Red Blood Cell Count 3.23 M/uL (4.33-5.43)
[2020-02-01 05:09] LABS: Albumin 1.6 g/dL (3.4-5.0); Bilirubin Total 0.2 mg/dL (0.2-1.0); Magnesium 1.5 mg/dL (1.8-2.4); Potassium 3.7 mmol/L (3.5-5.1); Protein, Total 4.7 g/dL (6.4-8.2); Thyroid Stimulating Hormone 0.729 uIU/mL (0.360-3.740)
[2020-02-01] MEDS: carvediloL 25 MG TAB PO SCH ×2 (05:16→17:40)
[2020-02-01] MEDS: PANTOPRAZOLE 40MG TABLET PO SCH (05:17)
[2020-02-01 05:29] LABS: Blood Morphology Comment NOTED (NOT SEEN); Platelet Estimate ADEQ
--- NOTE | 2020-02-01 07:48 | ECHO ---
HEIGHT: 5 ft 10 in WEIGHT: 264 lb 0 oz DATE OF STUDY: 01/27/[address]: Nick Jaimes DO 2-DIMENSIONAL: YES M.MODE: YES DOPPLER: YES COLOR FLOW: YES TDS: PORTABLE: DEFINITY: BUBBLE STUDY: DIAGNOSIS: CORNARY ARTERY DISEASE, HYPERTENSION, RENAL DISEASE CARDIAC HISTORY: CATHERIZATION: YES SURGERY: NO PROSTHETIC VALVE: NO PACEMAKER: NO MEASUREMENTS (cm) DIASTOLIC (NORMALS) SYSTOLIC (NORMALS) IVSd 0.9 (0.6-1.2) LA Diam 4.4 (1.9-4.0) LVEF 57% LVIDd 5.6 (3.5-5.7) LVIDs 3.9 (2.0-3.5) %FS 30% LVPWd 1.1 (0.6-1.2) Ao Diam 3.0 (2.0-3.7) 2 DIMENSIONAL ASSESSMENT: RIGHT ATRIUM: NORMAL LEFT ATRIUM: DILATED RIGHT VENTRICLE: NORMAL LEFT VENTRICLE: NORMAL TRICUSPID VALVE: NORMAL MITRAL VALVE: NORMAL PULMONIC VALVE: NORMAL AORTIC VALVE: NORMAL PERICARDIAL EFFUSION: NONE AORTIC ROOT: NORMAL LEFT VENTRICULAR WALL MOTION: NORMAL EJECTION FRACTION DOPPLER/COLOR FLOW: MILD TRICUSPID REGUGITATION COMMENTS: NORMAL LEFT VENTRICULAR SIZE AND EJECTION FRACTION OF 57%. DECREASED LEFT VENTRICULAR COMPLIANCE. LEFT ATRIAL ENLARGEMENT. MILD TRICUSPID REGURGITATION. NORMAL RIGHT VENTRICULAR SYSTOLIC PRESSURE. TECHNOLOGIST: COLT COX
--- NOTE | 2020-02-01 08:23 | RAD REPORT ---
EXAM DESCRIPTION: RAD - Chest Pa And Lat (2 Views) - 02/01/2020 5:21 am CLINICAL HISTORY: Follow up CHF, pleural effusion Chest pain. COMPARISON: Chest Single View dated 01/31/2020; Chest Pa And Lat (2 Views) dated 06/12/2017; Chest Sing le View dated 10/27/2015; Chest Single View dated 09/11/2015; Stone Protocol dated 01/31/2020 FINDINGS: Small right pleural effusion is seen. A small amount of atelectasis is seen in the left elma ng base medially. Mild interstitial pulmonary edema suspected. The heart is normal in size.
[2020-02-01] MEDS: NICOTINE 21 MG/PAT TD SCH (08:29)
[2020-02-01] MEDS: FERROUS SULFATE 325 MG TAB PO SCH (08:29)
[2020-02-01] MEDS: ASPIRIN EC 81 MG TAB PO SCH (08:29)
[2020-02-01] MEDS: FUROSEMIDE 40 MG/4 ML VIAL IV SCH ×2 (08:30→16:17)
[2020-02-01] MEDS: HEPARIN 5000 UNIT/ML 1 ML VIAL SQ SCH ×2 (08:30→20:38)
[2020-02-01] MEDS ORDERED: MAGNESIUM SULFATE 1 gm IVPB 1 GM/100 ML BAG IV ONE ×2 (09:00→11:53)
[2020-02-01] MEDS ORDERED: METHYLPREDNISOLONE 125 MG INJ IV SCH (09:00)
[2020-02-01] MEDS: METHYLPREDNISOLONE 125 MG INJ IV SCH (11:52)
[2020-02-01] MEDS: CALCIUM CARBONATE CHEW 500MG TAB PO SCH ×2 (11:52→16:17)
--- NOTE | 2020-02-01 12:02 | RAD REPORT ---
EXAM DESCRIPTION: RAD - Chest Single View - 02/01/2020 11:55 am CLINICAL HISTORY: COPD Chest pain. COMPARISON: Chest Pa And Lat (2 Views) dated 02/01/2020; Chest Single View dated 01/31/2020; Chest Pa And Lat (2 Views) dated 06/12/2017; Chest Single View dated 10/27/2015 FINDINGS: Portable technique limits examination quality. The lungs are grossly clear. The heart is normal in size. Small bilateral pleural effusions. No displ aced fractures. IMPRESSION: Small bilateral pleural effusions.
--- NOTE | 2020-02-01 12:27 | PN ---
Date of Progress Note: 02/01/2020 Subjective: The patient was admitted with acute kidney injury, progression of disease, secondary overall volume, anasarca. The patient over the night started on diuresis, had good urine output. Physical Examination: Vital Signs: Blood pressure 154/106, pulse of 82, afebrile. The patient had urine output of 780. Chest: Decreased air entry bilateral base. Heart: S1, S2. Systolic murmur. Abdomen: Soft, nontender. Extremities: +1 edema. Laboratory Data: WBC 13.7, H and H 9.4/27.4, platelets 287. Sodium 143, potassium 3.7, bicarb 26, BUN 43, creatinine 4.3, GFR of 18. Calcium 5.9, magnesium 1.5. Triglycerides 155. TSH 0.7. Current Medications: The patient on include aspirin, nicotine, heparin, atorvastatin, carvedilol 25 b.i.d., hydralazine, Lasix 80 b.i.d., pantoprazole. Assessment And Plan: 1. 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 I am going to go ahead and continue diuresis. We will start the patient on Solu- Medrol 80 mg daily. We spoke to the GI. They agreed that they are going to start the patient on hepatitis treatment as outpatient. We will monitor the patient for another 24 hours. If kidney function stays stable, the patient may be discharged and treated as outpatient. We will continue to monitor, keep holding JUNG inhibitor or ARB given the current kidney function. 2. Hypertension, not controlled. I am going to add amlodipine. We will utilize the blood pressure for more diuresis. Continue beta-glenn. 3. Hypocalcemia, corrected calcium is low. I am going to start the patient on calcium carbonate. We will send for PTH and vitamin D to see if the patient is going to need supplement and we will follow up. 4. 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 Start Solu-Medrol. Time spent coordinating the care, discuss him with all of our team members including othere sap business objects consultant and hospitalist and [id number] with the patient and please go out of 35 min LINO/PATRIZIA Voice ID: [id number] Report ID: [id number] MTDKristin
--- NOTE | 2020-02-01 13:52 | P.PN ---
Subjective Date of Service: 02/01/20 Primary Care Provider: None, seen at [facility]; Nephrology-Dr. Skinner Chief Complaint: Shortness of breath, edema Subjective: Improving, Doing well Physical Examination - Vital Signs Temperature: 98.4 F Blood Pressure: 111/67 Pulse: 86 Respirations: 18 Pulse Ox (%): 97 - Physical Exam General: Alert, In no apparent distress, Oriented x3, Cooperative HEENT: Atraumatic Neck: Supple Respiratory: Diminished (To the bases bilateral) Cardiovascular: Normal pulses, Regular rate/rhythm Gastrointestinal: Normal bowel sounds Integumentary: No erythema, No warmth, No cyanosis, Tenderness/swelling (Edema to the lower extremities improved) Neurological: Normal speech, Normal strength at 5/5 x4 extr, Normal tone, Normal affect - Studies Medications List Reviewed: Yes Assessment & Plan Discharge Plan: Home Plan to discharge in: 24 Hours Physician Review Additional Text: Impression: Dyspnea secondary to acute on chronic diastolic CHF with bilateral pleural effusions that are likely chronic Acute on chronic renal disease stage IV secondary to membranous proliferative glomerular nephritis Hypertension, uncontrolled Elevated troponin likely related to above with history of CAD and prior stent History of CVA Hepatitis-C Tobacco abuse Anemia of chronic disease Hypomagnesia, Hypocalcemia, hypokalemia Plan: Dyspnea secondary to acute on chronic diastolic CHF with bilateral pleural effusions that are likely chronic: Patient remains on IV Lasix. Case discussed with cardiology and nephrology. Will continue with diuresis. Patient had recent biopsy. Patient with membranous proliferative glomerulonephritis. Patient needs hepatitis-C treated to help with this. GI consulted. Will discuss with him further. Will continue monitor closely. Anticipate improvement over the next 24 hr. Acute on chronic renal disease stage IV secondary to membranous proliferative glomerular nephritis: Case discussed in detail with nephrology. GI consulted to help in treatment of his hepatitis-C. Hypertension, uncontrolled: Continue carvedilol. Will provide IV hydralazine if required. May need additional medication for better control. Elevated troponin likely related to above with history of CAD and prior stent: Continue aspirin. Will continue to monitor closely. Will obtain recent heart catheterization performed at [facility]. Echocardiogram to be obtained. Consult cardiology for further recommendation. Will go over echocardiogram. History of CVA: Continue aspirin. Patient will be placed on DVT prophylaxis. Hepatitis-C: Case discussed with GI. Patient needs treatment as an outpatient. Tobacco abuse: Tobacco cessation addressed in detail. Patient made need nicotine patch. Anemia of chronic disease: Will monitor closely. Continue iron supplementation. Hypomagnesia, Hypocalcemia, hypokalemia: Will replace magnesium. Await recommendations from nephrology concerning low calcium/potassium. Time Spent Managing Pts Care (In Minutes): 55
[2020-02-01] MEDS: HYDRALAZINE HCL 25 MG TABLET PO SCH ×2 (13:55→20:38)
[2020-02-01] MEDS: ATORVASTATIN 20 MG TAB PO SCH (20:38)
[2020-02-02 05:06] LABS: Absolute Lymphocytes (CBC) 1.3 K/uL (0.7-4.9); Basophils % 0.2 % (0-1.3); Hematocrit 26.4 % (39.6-49.0); Lymphocytes % 7.2 % (15.3-44.8); MPV 8.9 fL (7.6-11.3)
[2020-02-02] MEDS: carvediloL 25 MG TAB PO SCH ×2 (05:23→18:22)
[2020-02-02] MEDS: PANTOPRAZOLE 40MG TABLET PO SCH (05:23)
[2020-02-02 05:26] LABS: Albumin 1.7 g/dL (3.4-5.0); Bilirubin Total 0.1 mg/dL (0.2-1.0); Magnesium 1.9 mg/dL (1.8-2.4); Phosphorus 5.1 mg/dL (2.5-4.9); Potassium 3.4 mmol/L (3.5-5.1); Protein, Total 4.6 g/dL (6.4-8.2)
[2020-02-02] MEDS: CALCIUM CARBONATE CHEW 500MG TAB PO SCH ×3 (06:49→16:31)
--- NOTE | 2020-02-02 08:52 | P.PN ---
Subjective Date of Service: 02/02/20 Primary Care Provider: None, seen at [facility]; Nephrology-Dr. Skinner Chief Complaint: Shortness of breath, edema Subjective: Improving, Doing well Physical Examination - Vital Signs Temperature: 97.8 F Blood Pressure: 151/94 Pulse: 90 Respirations: 18 Pulse Ox (%): 95 - Physical Exam General: Alert, In no apparent distress, Oriented x3, Cooperative HEENT: Atraumatic Neck: Supple Respiratory: Clear to auscultation bilaterally, Normal air movement Cardiovascular: Normal pulses, Regular rate/rhythm Gastrointestinal: Normal bowel sounds, No tenderness, No masses, No rebound, No guarding Integumentary: Tenderness/swelling (Pitting edema to the lower extremities improved. 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 Continue fluid restriction. Case discussed with nephrology. 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 Case also discuss with GI. GI getting workup started in preparation for outpatient hepatitis C treatment. GI noted liver mass that his increase in size since prior CT scan. This may need to be further evaluated. Lab obtained to evaluate for possible hepatocellular carcinoma. If carcinoma identified this may complicate his future treatment for hepatitis-C. If lab workup unremarkable patient may require liver biopsy. Will discuss further with GI and nephrology to address plan of care further. Possible discharge in the next 24 hr. 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 Will discuss with GI and nephrology concerning plan of care. Hepatitis-C lab obtain for future treatment. Patient also currently being evaluated for liver mass suspected hepatocellular carcinoma Hypertension, uncontrolled: Continue carvedilol. Hydralazine and Norvasc orally added. Will provide IV hydralazine if required. Will continue to adjust medication Elevated troponin likely related to above with history of CAD and prior stent: Continue aspirin. Will continue to monitor closely. Will obtain recent heart catheterization performed at [facility]. Echocardiogram to be obtained. Consult cardiology for further recommendation. Will go over echocardiogram. History of CVA: Continue aspirin. Patient will be placed on DVT prophylaxis. Hepatitis-C with noted liver mass suspected Hepatocellular carcinoma: As mentioned above continue with above plan of care. Will discuss further with GI Tobacco abuse: Tobacco cessation addressed in detail. Patient made need nicotine patch. Anemia of chronic disease: Will monitor closely. Continue iron supplementation. Hypomagnesia, Hypocalcemia, hypokalemia: Will replace magnesium. Continue with Nephrology recommendations. Time Spent Managing Pts Care (In Minutes): 55
[2020-02-02] MEDS: METHYLPREDNISOLONE 125 MG INJ IV SCH (09:04)
[2020-02-02] MEDS: AMLODIPINE 10 MG TAB PO SCH (09:04)
[2020-02-02] MEDS: FUROSEMIDE 40 MG/4 ML VIAL IV SCH ×3 (09:04→20:16)
[2020-02-02] MEDS: FERROUS SULFATE 325 MG TAB PO SCH (09:04)
[2020-02-02] MEDS: NICOTINE 21 MG/PAT TD SCH (09:05)
[2020-02-02] MEDS: HEPARIN 5000 UNIT/ML 1 ML VIAL SQ SCH ×2 (09:05→20:16)
[2020-02-02] MEDS: ASPIRIN EC 81 MG TAB PO SCH (09:05)
[2020-02-02] MEDS: HYDRALAZINE HCL 25 MG TABLET PO SCH ×3 (09:05→20:16)
[2020-02-02] MEDS ORDERED: FUROSEMIDE 40 MG/4 ML VIAL IV ONE (11:20)
[2020-02-02] MEDS: CALCITROL 0.25 MCG CAP PO SCH (12:00)
--- NOTE | 2020-02-02 13:52 | P.PN ---
Subjective Date of Service: 02/02/20 Primary Care Provider: None, seen at [facility]; Nephrology-Dr. Skinner Chief Complaint: Shortness of breath, edema Review of Systems 10-point ROS is otherwise unremarkable General: Weakness Respiratory: SOB with Excertion Cardiovascular: Orthopnea, Edema Gastrointestinal: As per HPI Genitourinary: Frequency Musculoskeletal: As per HPI Integumentary: Other (WNL), As per HPI Neurological: Other (wnl) Physical Examination - Vital Signs Temperature: 97.8 F Blood Pressure: 134/66 Pulse: 90 Respirations: 18 Pulse Ox (%): 95 - Physical Exam General: Alert, Oriented x3 HEENT: Atraumatic, PERRLA Neck: Supple, 2+ carotid pulse no bruit Respiratory: Rhonchi/gurgles Cardiovascular: Edema Gastrointestinal: Normal bowel sounds Musculoskeletal: No clubbing Integumentary: No rashes Neurological: Normal gait, Normal speech Lymphatics: No axilla or inguinal lymphadenopathy External genitalia: Edema - Studies reviewed Medications List Reviewed: Yes Assessment And Plan - Plan 1. 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 I am going to go ahead increase lasix diuresis. continue Solu-Medrol 80 mg daily. We spoke to the GI. They agreed that they are going to start the patient on hepatitis treatment as outpatient. We will monitor the patient for another 24 hours. If kidney function stays stable, the patient may be discharged and treated as outpatient. We will continue to monitor, keep holding JUNG inhibitor or ARB given the current kidney function. 2. Hypertension, not controlled. We will utilize the blood pressure for more diuresis. Continue beta-glenn. 3. SHPTH Hypocalcemia, corrected calcium is low. continue the patient on calcium carbonate. start calcitiol 4. 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 Start Solu-Medrol. 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 Continue fluid restriction. Case discussed with nephrology. 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 Case also discuss with GI. GI getting workup started in preparation for outpatient hepatitis C treatment. GI noted liver mass that his increase in size since prior CT scan. This may need to be further evaluated. Lab obtained to evaluate for possible hepatocellular carcinoma. If carcinoma identified this may complicate his future treatment for hepatitis-C. If lab workup unremarkable patient may require liver biopsy. Will discuss further with GI and nephrology to address plan of care further. Possible discharge in the next 24 hr. 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 Will discuss with GI and nephrology concerning plan of care. Hepatitis-C lab obtain for future treatment. Patient also currently being evaluated for liver mass suspected hepatocellular carcinoma Hypertension, uncontrolled: Continue carvedilol. Hydralazine and Norvasc orally added. Will provide IV hydralazine if required. Will continue to adjust medication Elevated troponin likely related to above with history of CAD and prior stent: Continue aspirin. Will continue to monitor closely. Will obtain recent heart catheterization performed at [facility]. Echocardiogram to be obtained. Consult cardiology for further recommendation. Will go over echocardiogram. History of CVA: Continue aspirin. Patient will be placed on DVT prophylaxis. Hepatitis-C with noted liver mass suspected Hepatocellular carcinoma: As mentioned above continue with above plan of care. Will discuss further with GI Tobacco abuse: Tobacco cessation addressed in detail. Patient made need nicotine patch. Anemia of chronic disease: Will monitor closely. Continue iron supplementation. Hypomagnesia, Hypocalcemia, hypokalemia: Will replace magnesium. Continue with Nephrology recommendations. Time Spent Managing PTS Care (In Minutes): 35
[2020-02-02] MEDS: ATORVASTATIN 20 MG TAB PO SCH (20:17)
[2020-02-03] MEDS: PANTOPRAZOLE 40MG TABLET PO SCH (05:17)
[2020-02-03] MEDS: carvediloL 25 MG TAB PO SCH ×2 (05:17→18:31)
[2020-02-03 05:30] VITALS: BMI 38.2
[2020-02-03 05:40] LABS: Basophils % 0.1 % (0-1.3); Hematocrit 27.3 % (39.6-49.0); Lymphocytes % 9.8 % (15.3-44.8); MPV 8.3 fL (7.6-11.3); RBC Red Blood Cell Count 3.21 M/uL (4.33-5.43)
[2020-02-03 06:07] LABS: Albumin 1.7 g/dL (3.4-5.0); Bilirubin Total 0.2 mg/dL (0.2-1.0); Magnesium 1.7 mg/dL (1.8-2.4); Phosphorus 5.4 mg/dL (2.5-4.9); Potassium 3.2 mmol/L (3.5-5.1); Protein, Total 4.8 g/dL (6.4-8.2)
--- NOTE | 2020-02-03 08:13 | RAD REPORT ---
EXAM DESCRIPTION: RAD - Chest Pa And Lat (2 Views) - 02/03/2020 8:00 am CLINICAL HISTORY: follow up pleural effusions COMPARISON: Portable chest and two view chest January 31 TECHNIQUE: Frontal and lateral views of the chest were obtained. FINDINGS: The lungs are clear of a new focal mass or consolidation. Heart size is normal and centr al vasculature is within normal limits. Small bilateral pleural effusions are still present. Fluid m ight be slightly worse than on prior imaging. No acute bony finding noted. No aortic abnormality. IMPRESSION: Small bilateral pleural effusions similar or fractionally larger than comparison imaging .
[2020-02-03] MEDS: FUROSEMIDE 40 MG/4 ML VIAL IV SCH ×3 (08:35→21:14)
[2020-02-03] MEDS: AMLODIPINE 10 MG TAB PO SCH (08:36)
[2020-02-03] MEDS: METHYLPREDNISOLONE 125 MG INJ IV SCH (08:36)
[2020-02-03] MEDS: FERROUS SULFATE 325 MG TAB PO SCH (08:36)
[2020-02-03] MEDS: CALCIUM CARBONATE CHEW 500MG TAB PO SCH ×3 (08:36→16:30)
[2020-02-03] MEDS: HYDRALAZINE HCL 25 MG TABLET PO SCH ×3 (08:36→21:13)
[2020-02-03] MEDS: ASPIRIN EC 81 MG TAB PO SCH (08:37)
[2020-02-03] MEDS: HEPARIN 5000 UNIT/ML 1 ML VIAL SQ SCH ×2 (08:37→21:15)
[2020-02-03] MEDS: NICOTINE 21 MG/PAT TD SCH (08:37)
[2020-02-03] MEDS ORDERED: MAGNESIUM SULFATE 1 gm IVPB 1 GM/100 ML BAG IV ONE (09:00)
[2020-02-03] MEDS ORDERED: CALCIUM GLUC 10% INJ 9.3 MEQ in NA CHLORIDE 0.9% 100 ML IV ONE (10:52)
--- NOTE | 2020-02-03 10:57 | P.PN ---
Subjective Date of Service: 02/03/20 Primary Care Provider: None, seen at [facility]; Nephrology-Dr. Skinner Chief Complaint: Shortness of breath, edema Subjective: Improving Subjective Pt with hx of HEp C , CKD due to MPGN admitted with SOB and fluid iverload Today Cr cont to improve will cont lasix possible discharge tomorrow Physical exam general: AAOX3, NAD , obese Neck; Supple, No elevated JVD hear: RRR, normal S1,2 no murmur or rub Chest: CTAB, no rlaes or wheezes Abdomen: Soft , Nt Extremities _+1 edema , no ulcer A?P YOSELIN on CKD IIIb/V due to fluid overload CKD due to MPGN from HCV cont steroids avoid NSAID and contrast HCV F/U with GI Hypokalemia due to diuresis replace prn metabolic bone disease cont calcitriol and calcium will give CA gluconate IV today Liver mass F/U whth GI Physical Examination - Vital Signs Temperature: 97.2 F Blood Pressure: 140/74 Pulse: 77 Respirations: 18 Pulse Ox (%): 98 - Studies Medications List Reviewed: Yes
--- NOTE | 2020-02-03 11:59 | P.PN ---
Subjective Date of Service: 02/03/20 Primary Care Provider: None, seen at [facility]; Nephrology-Dr. Skinner Chief Complaint: Shortness of breath, edema Subjective: Doing well Physical Examination - Vital Signs Temperature: 97.2 F Blood Pressure: 140/74 Pulse: 77 Respirations: 18 Pulse Ox (%): 98 - Physical Exam General: Alert, In no apparent distress, Oriented x3, Cooperative HEENT: Atraumatic Neck: Supple Respiratory: Clear to auscultation bilaterally (Anteriorly), Other (Slightly decreased to the bases) Cardiovascular: Normal pulses, Regular rate/rhythm Gastrointestinal: Normal bowel sounds, Soft and benign, Non-distended Integumentary: Tenderness/swelling (Swelling to the lower extremities slowly improving.) Neurological: Normal speech, Normal strength at 5/5 x4 extr, Normal tone, Normal affect - Studies Medications List Reviewed: Yes Assessment & Plan Discharge Plan: Home Plan to discharge in: 24 Hours Physician Review Additional Text: Impression: Dyspnea secondary to acute on chronic diastolic CHF with bilateral pleural effusions that are likely chronic 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 Nephrology has adjusted IV Lasix to 80 mg 3 times a day. Continue fluid restriction. Continue to diurese. Case discussed with nephrology. Patient likely requires 1 more day of diuresis. 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 Case also discuss with GI. GI getting workup started in preparation for outpatient hepatitis C treatment. GI noted liver mass that his increase in size since prior CT scan. This may need to be further evaluated. Lab obtained to evaluate for possible hepatocellular carcinoma. If carcinoma identified this may complicate his future treatment for hepatitis-C. If lab workup unremarkable patient may require liver biopsy. Will discuss further with GI and nephrology to address plan of care further. At discharge patient will need to decide on where he would want to get treated for his hepatitis-C. [facility] or [place] are options of care. Likely discharge in the next 24 hr if okay with nephrology. I will turn the service over to the hospitalist team tomorrow. I will go over plan of care with him. 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 Continue to discuss with GI and nephrology for plan of care. Hepatitis-C lab obtain for future treatment. Patient also currently being evaluated for liver mass suspected hepatocellular carcinoma Hypertension, uncontrolled: Continue carvedilol, Hydralazine and Norvasc orally added. Will provide IV hydralazine if required. Will continue to adjust medication Elevated troponin likely related to above with history of CAD and prior stent: Continue aspirin. Will continue to monitor closely. Will obtain recent heart catheterization performed at [facility]. Echo unremarkable per Cardiology History of CVA: Continue aspirin. Patient will be placed on DVT prophylaxis. Hepatitis-C with noted liver mass suspected Hepatocellular carcinoma: As mentioned above continue with above plan of care. Will discuss further with GI Tobacco abuse: Tobacco cessation addressed in detail. Patient made need nicotine patch. Anemia of chronic disease: Will monitor closely. Continue iron supplementation. Hypomagnesia, Hypocalcemia, hypokalemia: Continue to replace electrolytes. Continue with Nephrology recommendations. Time Spent Managing Pts Care (In Minutes): 55
[2020-02-03] MEDS: ATORVASTATIN 20 MG TAB PO SCH (21:13)
[2020-02-04] MEDS: carvediloL 25 MG TAB PO SCH ×2 (05:48→17:55)
[2020-02-04] MEDS: PANTOPRAZOLE 40MG TABLET PO SCH (05:49)
[2020-02-04 06:48] LABS: Albumin 1.7 g/dL (3.4-5.0); Magnesium 1.6 mg/dL (1.8-2.4); Phosphorus 5.8 mg/dL (2.5-4.9); Potassium 3.3 mmol/L (3.5-5.1)
[2020-02-04] MEDS ORDERED: CALCIUM GLUC 10% INJ 9.3 MEQ in NA CHLORIDE 0.9% 100 ML IV ONE (07:31)
[2020-02-04] MEDS: CALCIUM CARBONATE CHEW 500MG TAB PO SCH ×3 (08:24→16:22)
[2020-02-04] MEDS: NICOTINE 21 MG/PAT TD SCH (08:24)
[2020-02-04] MEDS: ASPIRIN EC 81 MG TAB PO SCH (08:24)
[2020-02-04] MEDS: FERROUS SULFATE 325 MG TAB PO SCH (08:24)
[2020-02-04] MEDS: AMLODIPINE 10 MG TAB PO SCH (08:24)
[2020-02-04] MEDS: HYDRALAZINE HCL 25 MG TABLET PO SCH ×3 (08:24→21:38)
[2020-02-04] MEDS: HEPARIN 5000 UNIT/ML 1 ML VIAL SQ SCH ×2 (08:24→20:32)
[2020-02-04] MEDS: FUROSEMIDE 40 MG/4 ML VIAL IV SCH ×3 (08:25→20:33)
[2020-02-04] MEDS: METHYLPREDNISOLONE 125 MG INJ IV SCH (08:26)
[2020-02-04] MEDS ORDERED: MAGNESIUM SULFATE 1 gm IVPB 1 GM/100 ML BAG IV ONE (09:00)
[2020-02-04] MEDS ORDERED: POTASSIUM CL SA 10 MEQ TAB PO ONE (09:00)
--- NOTE | 2020-02-04 10:48 | P.PN ---
Subjective Date of Service: 02/04/20 Primary Care Provider: None, seen at [facility]; Nephrology-Dr. Skinner Chief Complaint: Congestive heart failure Patient is still complaining of shortness of breath although he has improved still has lower extremity edema Review of Systems General: Weakness Respiratory: Shortness of Breath Cardiovascular: Edema Physical Examination - Vital Signs Temperature: 97.4 F Blood Pressure: 170/96 Pulse: 96 Respirations: 18 Pulse Ox (%): 94 - Physical Exam General: Alert, In no apparent distress, Oriented x3 Respiratory: Clear to auscultation bilaterally Cardiovascular: Normal S1 S2, Edema Gastrointestinal: Normal bowel sounds, Soft and benign - Studies Medications List Reviewed: Yes Assessment & Plan - Problems (Diagnosis) (1) Diastolic heart failure Current Visit: Yes Status: Acute Plan: Patient is 49 years of age admitted with acute on chronic diastolic heart failure ejection fraction is normal in addition he also has chronic renal failure chest x-ray clear patient's white count is progressively increasing mildly hypocalcemic I suspect is secondary to hypoalbuminemia white count is probably elevated from steroids (2) Renal failure Current Visit: Yes Status: Acute Plan: Patient has membranoproliferative glomerulonephritis secondary to hepatitis-C is currently on steroids and renal function is improving Qualifiers: Chronic kidney disease stage: stage 4 (severe) (3) Sleep apnea Current Visit: Yes Status: Acute Plan: I suspect patient has significant sleep apnea the complains of loud snoring excessive take daytime somnolence of start him on some BiPAP
--- NOTE | 2020-02-04 11:51 | CON ---
Date of Consultation: 02/01/2020 Reason For Consultation: Congestive heart failure. History Of Present Illness: Mr. Hubbard is a 49-year-old male with history of diabetes, coronary art fabienne disease, hepatitis, congestive heart failure, CVA, and dyslipidemia. He had a recent cardiac wor kup about 2 months ago. This was done at [facility] and apparently according to him, the only thing that w orked for his congestive heart failure was a Lasix drip. He came in with congestive heart failure an d acute renal failure, presumably related to hepatitis C. According to him, his creatinine today was 4.34. His hemoglobin was 9.4. He was hypocalcemic at 5.9. His magnesium was 1.2. He was already feeling better but continued to have some edema and some shortness of breath. Denied chest pain, [place], vomiting, diaphoresis, palpitation, or syncope. Denied fever or chills. Past Medical History: As stated above. Allergies: HE IS ALLERGIC TO TRAMADOL. Review of Systems: Negative. Social History: Negative. Family History: Negative. Medications: At home include Coreg, Lasix, Lipitor, iron, and Protonix. Physical Examination: Vital Signs: Stable, afebrile, sinus rhythm. HEENT: Negative. Neck: Supple with no bruit. Chest: Clear to auscultation and percussion. Cardiac: Revealed a regular rhythm and rate with an S4 gallops. No murmurs or rubs. Abdomen: Benign. Extremities: Revealed no clubbing, cyanosis, or edema. Diagnostic Data: As stated earlier. EKG showed LVH. Chest x-ray showed mild CHF. Impression And Plan: 1.Acute on chronic diastolic congestive heart failure. The patient is on Lasix, Coreg, hydralazine, heparin, aspirin, and I agree with the regimen. Echocardiogram is pending. Nephrology consultation is pending. 2.Acute renal failure. Creatinine of 4.34. 3.Hepatitis C. 4.Diabetes. 5.History of cerebrovascular accident. 6.History of dyslipidemia, well controlled. 7.History of coronary artery disease, stable. No acute coronary syndrome. Negative cardiac workup including a stress test about 2 months ago at [facility]. I agree with the present regimen. We will see w hat the echocardiogram shows. We will follow Nephrology's recommendation. I will continue to follow . OLIVE/PATRIZIA Voice ID: [id number] Report ID: [id number]
[2020-02-04] MEDS: CALCITROL 0.25 MCG CAP PO SCH (12:00)
--- NOTE | 2020-02-04 15:21 | P.PN ---
Subjective Date of Service: 02/04/20 Primary Care Provider: None, seen at [facility]; Nephrology-Dr. Skinner Chief Complaint: Congestive heart failure Subjective: Improving Subjective Pt with hx of HEp C , CKD due to MPGN admitted with SOB and fluid iverload Today Cr cont to improve replace K will add metolazone Can be discharged tomorrow from nephrology point if view Physical exam general: AAOX3, NAD , obese Neck; Supple, No elevated JVD hear: RRR, normal S1,2 no murmur or rub Chest: CTAB, no rlaes or wheezes Abdomen: Soft , Nt Extremities _+1 edema , no ulcer A?P YOSELIN on CKD IIIb/V due to fluid overload CKD due to MPGN from HCV cont steroids avoid NSAID and contrast HCV F/U with GI Hypokalemia due to diuresis replace prn metabolic bone disease cont calcitriol and calcium will give CA gluconate IV today Liver mass F/U whth GI Physical Examination - Vital Signs Temperature: 97.2 F Blood Pressure: 132/77 Pulse: 68 Respirations: 15 Pulse Ox (%): 97 - Studies Medications List Reviewed: Yes
[2020-02-04] MEDS: METOLAZONE 5 MG TABLET PO SCH (16:22)
[2020-02-04] MEDS ORDERED: POTASSIUM 25 MEQ EFFERV TAB PO ONE ×2 (16:30→23:45)
[2020-02-04] MEDS: ATORVASTATIN 20 MG TAB PO SCH (20:32)
[2020-02-05] MEDS: carvediloL 25 MG TAB PO SCH ×2 (05:26→18:01)
[2020-02-05] MEDS: PANTOPRAZOLE 40MG TABLET PO SCH (05:58)
[2020-02-05] MEDS: CALCIUM CARBONATE CHEW 500MG TAB PO SCH ×3 (06:42→16:33)
[2020-02-05 06:53] LABS: Albumin 1.7 g/dL (3.4-5.0); Magnesium 1.7 mg/dL (1.8-2.4); Phosphorus 4.6 mg/dL (2.5-4.9); Potassium 3.2 mmol/L (3.5-5.1)
[2020-02-05 07:07] LABS: Absolute Lymphocytes (CBC) 1.6 K/uL (0.7-4.9); Basophils % 0.6 % (0-1.3); Lymphocytes % 7.6 % (15.3-44.8); MPV 8.3 fL (7.6-11.3); RBC Red Blood Cell Count 3.31 M/uL (4.33-5.43)
[2020-02-05] MEDS ORDERED: POTASSIUM CL SA 10 MEQ TAB PO ONE ×2 (07:50→16:04)
[2020-02-05] MEDS: HEPARIN 5000 UNIT/ML 1 ML VIAL SQ SCH ×2 (08:24→21:06)
[2020-02-05] MEDS: METOLAZONE 5 MG TABLET PO SCH (08:24)
[2020-02-05] MEDS: METHYLPREDNISOLONE 125 MG INJ IV SCH (08:24)
[2020-02-05] MEDS: FUROSEMIDE 40 MG/4 ML VIAL IV SCH ×3 (08:25→21:05)
[2020-02-05] MEDS: HYDRALAZINE HCL 25 MG TABLET PO SCH ×3 (08:25→21:06)
[2020-02-05] MEDS: AMLODIPINE 10 MG TAB PO SCH (08:25)
[2020-02-05] MEDS: FERROUS SULFATE 325 MG TAB PO SCH (08:26)
[2020-02-05] MEDS: ASPIRIN EC 81 MG TAB PO SCH (08:26)
[2020-02-05] MEDS: NICOTINE 21 MG/PAT TD SCH (08:27)
[2020-02-05 08:52] LABS: Blood Morphology Comment NOT SEEN (NOT SEEN); Platelet Estimate ADEQ
[2020-02-05] MEDS ORDERED: POTASSIUM 25 MEQ EFFERV TAB PO ONE (09:00)
[2020-02-05] MEDS ORDERED: MAGNESIUM SULFATE 1 gm IVPB 1 GM/100 ML BAG IV ONE (09:00)
--- NOTE | 2020-02-05 09:27 | P.PN ---
Subjective Date of Service: 02/05/20 Primary Care Provider: None, seen at [facility]; Nephrology-Dr. Skinner Chief Complaint: Congestive heart failure Patient is still complaining of lower extremity edema states that he has not lost any weight still short of breath BiPAP is helping renal function improving Review of Systems General: Weakness Respiratory: Shortness of Breath Cardiovascular: Edema Physical Examination - Vital Signs Temperature: 97.5 F Blood Pressure: 150/90 Pulse: 63 Respirations: 20 Pulse Ox (%): 97 - Physical Exam General: Alert, Oriented x3 Respiratory: Clear to auscultation bilaterally Cardiovascular: Regular rate/rhythm, Edema - Studies Medications List Reviewed: Yes Assessment & Plan - Problems (Diagnosis) (1) Diastolic heart failure Current Visit: Yes Status: Acute Plan: Patient admitted with diastolic heart failure is still edematous still short of breath patient is on IV Lasix I have added spironolactone potassium level is low saturation satisfactory (2) Renal failure Current Visit: Yes Status: Acute Plan: Renal function improving patient is on steroids dose of steroids as per Nephrology patient has no insurance Qualifiers: Chronic kidney disease stage: stage 4 (severe) (3) Sleep apnea Current Visit: Yes Status: Acute Plan: Patient will need an outpatient sleep study
--- NOTE | 2020-02-05 13:42 | P.PN ---
Subjective Date of Service: 02/08/20 Primary Care Provider: None, seen at [facility]; Nephrology-Dr. Skinner Chief Complaint: Congestive heart failure Subjective Pt with hx of HEp C , CKD due to MPGN admitted with SOB and fluid iverload Today Cr cont to improve replace K Can be discharged tomorrow from nephrology point if view Physical exam general: AAOX3, NAD , obese Neck; Supple, No elevated JVD hear: RRR, normal S1,2 no murmur or rub Chest: CTAB, no rlaes or wheezes Abdomen: Soft , Nt Extremities _+1 edema , no ulcer A/P YOSELIN on CKD IIIb/V due to fluid overload CKD due to MPGN from HCV cont steroids avoid NSAID and contrast HCV F/U with GI Hypokalemia due to diuresis replace prn metabolic bone disease cont calcitriol and calcium Liver mass F/U whith GI Physical Examination - Vital Signs Temperature: 98.1 F Blood Pressure: 127/79 Pulse: 67 Respirations: 20 Pulse Ox (%): 97 - Studies Medications List Reviewed: Yes
[2020-02-05] MEDS: SPIRONOLACTONE 25 MG TABLET PO SCH (21:05)
[2020-02-05] MEDS: ATORVASTATIN 20 MG TAB PO SCH (21:06)
[2020-02-06 03:10] LABS: HBsAG Reactive (Nonreactive)
[2020-02-06 05:52] LABS: Albumin 1.7 g/dL (3.4-5.0); Phosphorus 4.9 mg/dL (2.5-4.9); Potassium 3.5 mmol/L (3.5-5.1)
[2020-02-06] MEDS: carvediloL 25 MG TAB PO SCH ×2 (06:00→18:00)
[2020-02-06] MEDS: CALCIUM CARBONATE CHEW 500MG TAB PO SCH ×3 (06:41→16:56)
[2020-02-06] MEDS: PANTOPRAZOLE 40MG TABLET PO SCH (06:41)
[2020-02-06] MEDS: METOLAZONE 5 MG TABLET PO SCH (08:08)
[2020-02-06] MEDS: ASPIRIN EC 81 MG TAB PO SCH (08:09)
[2020-02-06] MEDS: SPIRONOLACTONE 25 MG TABLET PO SCH ×2 (08:09→21:07)
[2020-02-06] MEDS: AMLODIPINE 10 MG TAB PO SCH (08:09)
[2020-02-06] MEDS: FERROUS SULFATE 325 MG TAB PO SCH (08:09)
[2020-02-06] MEDS: HYDRALAZINE HCL 25 MG TABLET PO SCH ×3 (08:09→21:06)
[2020-02-06] MEDS: HEPARIN 5000 UNIT/ML 1 ML VIAL SQ SCH ×2 (08:10→21:07)
[2020-02-06] MEDS: FUROSEMIDE 40 MG/4 ML VIAL IV SCH ×3 (08:10→21:00)
[2020-02-06] MEDS: NICOTINE 21 MG/PAT TD SCH (08:11)
[2020-02-06] MEDS: METHYLPREDNISOLONE 125 MG INJ IV SCH (08:11)
[2020-02-06] MEDS ORDERED: POTASSIUM CL SA 10 MEQ TAB PO ONE (09:00)
[2020-02-06 09:51] LABS: Vitamin D 1,25-Dihydroxy Total 27 pg/mL (18-72); Vitamin D,1,25-OH2, D2 <8 pg/mL
[2020-02-06] MEDS: CALCITROL 0.25 MCG CAP PO SCH (11:59)
[2020-02-06] MEDS ORDERED: ALBUMIN HUMAN 25% 12.5 GM, FUROSEMIDE 100 MG in NA CHLORIDE 0.9% 40 ML IV SCH (18:00)
[2020-02-06] MEDS: ATORVASTATIN 20 MG TAB PO SCH (21:06)
[2020-02-07 05:15] LABS: Potassium 2.8 mmol/L (3.5-5.1)
[2020-02-07] MEDS: carvediloL 25 MG TAB PO SCH ×2 (05:59→17:44)
[2020-02-07] MEDS: KCL 20 MEQ/100 mL IVPB 20 MEQ/100 ML BAG IV SCH ×3 (05:59→12:00)
[2020-02-07] MEDS: PANTOPRAZOLE 40MG TABLET PO SCH (05:59)
[2020-02-07] MEDS: CALCIUM CARBONATE CHEW 500MG TAB PO SCH (06:00)
[2020-02-07] MEDS ORDERED: NA CHLORIDE 0.9% 500 ML ONE (06:10)
[2020-02-07] MEDS: NICOTINE 21 MG/PAT TD SCH (08:48)
[2020-02-07] MEDS: FUROSEMIDE 40 MG/4 ML VIAL IV SCH (08:49)
[2020-02-07] MEDS: ASPIRIN EC 81 MG TAB PO SCH (08:49)
[2020-02-07] MEDS: AMLODIPINE 10 MG TAB PO SCH (08:50)
[2020-02-07] MEDS: METOLAZONE 5 MG TABLET PO SCH (08:50)
[2020-02-07] MEDS: HYDRALAZINE HCL 25 MG TABLET PO SCH ×3 (08:51→22:06)
[2020-02-07] MEDS: METHYLPREDNISOLONE 125 MG INJ IV SCH (08:51)
[2020-02-07] MEDS: SPIRONOLACTONE 25 MG TABLET PO SCH ×2 (08:51→22:07)
[2020-02-07] MEDS: HEPARIN 5000 UNIT/ML 1 ML VIAL SQ SCH ×2 (08:51→22:07)
[2020-02-07] MEDS: FERROUS SULFATE 325 MG TAB PO SCH (08:51)
--- NOTE | 2020-02-07 09:40 | P.PN ---
Subjective Date of Service: 02/06/20 Patient was upset because he states he has gained fluid since being admitted to the hospital. His weight has not gone down even though he has been getting Lasix. He said he was a [facility] a month ago and he was able to get 20 lb off of him because he retained so much fluid. Patient stated that he would rather get transferred there if we are not able to help him out. Patient has nephrotic level proteinuria. His albumin level is very low. He is 3rd spacing quite a bit of fluid. His weight has been 266-268 throughout his hospitalization. He has significant lower extremity edema. This extends to his thighs. The normally thing will be able to get all the fluid off of him but we should be able to get 5-10 more lb of fluid off of him over the next couple of days. Will need to monitor his electrolytes closely. Will do an albumin and Lasix drip. Patient will probably need hemodialysis in the near future. Review of Systems 10-point ROS is otherwise unremarkable Physical Examination - Vital Signs Temperature: 98.5 F Blood Pressure: 161/97 Pulse: 72 Respirations: 17 Pulse Ox (%): 98 - Physical Exam General: Alert, In no apparent distress, Oriented x3 Respiratory: Diminished, Other (Basilar crackles) Cardiovascular: Regular rate/rhythm, Normal S1 S2, Systolic murmur Gastrointestinal: Normal bowel sounds, Soft and benign, Non-distended, No tenderness Musculoskeletal: No clubbing, Swelling Integumentary: Tenderness/swelling Neurological: Normal strength at 5/5 x4 extr, Sensation intact, Cranial nerves 3-12 intact - Studies Medications List Reviewed: Yes Assessment & Plan - Problems (Diagnosis) (1) Membranoproliferative glomerulonephritis Current Visit: Yes Status: Acute (2) Proteinuria Current Visit: Yes Status: Acute (3) Hypoalbuminemia Current Visit: Yes Status: Acute (4) Edema due to hypoalbuminemia Current Visit: Yes Status: Acute (5) Anasarca associated with disorder of kidney Current Visit: Yes Status: Acute (6) Diastolic heart failure Current Visit: Yes Status: Acute (7) Renal failure Current Visit: Yes Status: Acute Qualifiers: Chronic kidney disease stage: stage 4 (severe) (8) Coronary artery disease Current Visit: No Status: Acute (9) Hypertension Current Visit: No Status: Acute - Plan Plan: 1. We need to more aggressively diurese the patient. He is 3rd spacing a lot of fluids because of his low albumin level. Will start him on albumin/Lasix drip. 2. Monitor renal function closely 3. Monitor electrolytes closely 4. Daily weight 5. Monitor protein level 6. Increase protein in diet 7. Patient is on IV steroids which also can increased fluid retention but he needs this to maintain his renal function. Continue this for now 8. GI and DVT prophylaxis - Advance Directives Does patient have a Living Will: No Does patient have a Durable POA for Healthcare: No
[2020-02-07] MEDS: ALBUMIN HUMAN 25% 12.5 GM, FUROSEMIDE 100 MG in NA CHLORIDE 0.9% 40 ML IV SCH ×5 (11:37→22:16)
--- NOTE | 2020-02-07 13:09 | PN ---
Date of Progress Note: 02/07/2020 Subjective: The patient was admitted for anasarca, acute kidney injury secondary to MPGN, secondary to cryo. The patient was started on diuresis and Solu-Medrol. Kidney function back to normal. The patient still has shortness of breath. Physical Examination: Vital Signs: When I saw the patient, blood pressure 160/97, pulse of 72 afebrile. The patient had urine output of 3800, negative of 2300. Chest: Crackles bilateral. HEART: S1, S2, systolic murmur. Abdomen: Soft, nontender. Extremities: +1 edema. Neurological: Alert and oriented x3. No focal. Laboratory Data: Sodium 143, potassium 2.8, bicarb 30, BUN 72, creatinine 2.4, GFR 34, calcium of 8, magnesium of 2, albumin 1.7. Corrected calcium is 10. Current Medications: The patient on include, 1. Aspirin. 2. Ferrous sulfate. 3. Calcium carbonate. 4. Amlodipine. 5. Atorvastatin. 6. Carvedilol. 7. Hydralazine 25 t.i.d. 8. Spironolactone. 9. Metolazone 2.5 daily. 10. Calcitriol 0.5 every 48 hours. Assessment And Plan: 1. Acute kidney injury secondary to membranoproliferative glomerulonephritis, secondary to cryo, secondary to hep C, on the recovery, still over volume. I am going to continue Lasix drip to establish better volume control for the patient. Increase metolazone to 5 mg and increase Spironolactone to 50 b.i.d. and we will monitor the patient closely. 2. Secondary hyperpara with marginal hypercalcemia. Discontinue calcium carbonate. 3. Hypertension. We will try to utilize blood pressure for more diuresis, continue Lasix, increase metolazone and spironolactone. 4. Hypokalemia. Increase Aldactone. Continue supplement and we will follow up the patient. 5. Cryoglobulinemia with hep C. Patient supposed to have followup with Hepatology, GI for starting treatment. Time spent coordinating the care, discuss him with all of our team members including othere retirement consultant and hospitalist and [id number] with the patient and please go out of 35 min SIMON Voice ID: [id number] Report ID: [id number] MTDD
[2020-02-07] MEDS: POTASSIUM CL 40 MEQ in NA CHLORIDE 0.9% 500 ML IV SCH ×3 (15:00→22:18)
--- NOTE | 2020-02-07 16:21 | PN ---
Date of Progress Note: 02/07/2020 Subjective: This patient was admitted with acute kidney injury secondary to cryo, secondary to hep C, over volume. The patient was started on Lasix drip, started establishing good negative balance. Objective: Vital Signs: I saw the patient with a blood pressure of 138/84, pulse of 73. The patient had good urine output of 1400 negative of 3 L. The patient had lost 6 pounds from yesterday as overall. Chest: Faint rales at the base. Heart: S1, S2. Systolic murmur. Abdomen: Soft, nontender. Extremities: Plus edema. Neurologic: Alert. No focal. Laboratory Data: WBC 13.2, H and H 9.6/27.9, and platelets 421. Sodium 142, potassium 3, bicarb 33, BUN 80, creatinine 2.4, GFR of 35, calcium 8.7. Current Medications: The patient on include; 1. Lasix drip at 20 mg per hour. 2. Aspirin. 3. Ferrous sulfate. 4. Amlodipine 10. 5. Carvedilol 25 b.i.d. 6. Hydralazine 25 t.i.d. 7. Spironolactone 50 b.i.d. 8. Metolazone. 9. Pantoprazole. 10. Prednisone 60 daily. 11. Calcitriol. Assessment And Plan: 1. Acute kidney injury, secondary to cryoglobulinemia. Recovered back to baseline. I will switch the patient from Lasix drip to Lasix bolus and the patient is going to be cleared from the renal standpoint for discharge planning. 2. Hypokalemia. We will supplement. I am going to go ahead and check for his magnesium. Continue spironolactone. 3. Anasarca, secondary to nephrotic range proteinuria, recovering very well. Continue diuresis. 4. Hep C with cryo. The patient was set up for outpatient hep C treatment. Currently, we will continue prednisone tapering dose. 5. Disproportion in BUN and creatinine is secondary to prednisone and diuresis. Prednisone is going to be tapered down. We will follow up. Time spent coordinating the care, discuss him with all of our team members including othere medical consultant and hospitalist and [id number] with the patient and please go out of 35 min SIMON Voice ID: [id number] Report ID: [id number] MTDD
--- NOTE | 2020-02-07 19:06 | PN ---
Date of Progress Note: 02/06/2020 Chief Complaint: Chronic kidney disease, acute kidney injury. Subjective: Patient has history of acute kidney injury on chronic kidney disease stage 3B/4. [place] was previously diagnosed with MPGN secondary to HCV. He is on steroids. Review of Systems: Denies fever, chills. Physical Examination: Lungs: Diminished breath sounds at bases. Heart: S1, S2. Abdomen: Soft, benign. Extremities: 1+ edema. Impression And Plan: 1.Acute kidney injury on chronic kidney disease associated with fluid overload. Patient has history of MPGN from HCV. Continue steroids. Avoid nonsteroidal anti-inflammatory medication. Avoid contr ast. 2.Hepatitis C virus. Followup with Gastroenterology. 3.Hypokalemia, replacement as needed. Monitor magnesium level. 4.Metabolic bone disease. Continue calcitriol. Monitor calcium and phosphorus levels. 5.Patient has history of liver mass and follow up will be arranged with machine straw hat presser. 6.Patient has multiple medical problems including history of chronic diastolic congestive heart fail ure, presented with dyspnea and bilateral pleural effusion. Patient will continue Lasix. Lasix dose was adjusted to 80 mg 3 times per day. Patient is on fluid restriction. Glomerulonephritis is rela fanny to hepatitis C. Patient will need GI evaluation for treatment and management of hepatitis C. 7.Acute on chronic kidney injury. Patient has stage 3B to stage 4 secondary to membranoproliferativ e glomerulonephritis with cryoglobulinemia. Patient will continue Lasix for management of fluid to p revent fluid overload. 8.Hypertension, uncontrolled. Hydralazine and Norvasc were added. Continue JUNG inhibitor for prote inuria control and blood pressure control. EB/MODL Voice ID: [id number] Report ID: [id number]
[2020-02-07] MEDS: ATORVASTATIN 20 MG TAB PO SCH (22:06)
[2020-02-08] MEDS: ALBUMIN HUMAN 25% 12.5 GM, FUROSEMIDE 100 MG in NA CHLORIDE 0.9% 40 ML IV SCH ×6 (01:00→21:02)
[2020-02-08 04:33] LABS: Absolute Lymphocytes (CBC) 1.3 K/uL (0.7-4.9); Basophils % 0.2 % (0-1.3); Hematocrit 27.6 % (39.6-49.0); Lymphocytes % 7.8 % (15.3-44.8); MPV 8.2 fL (7.6-11.3); RBC Red Blood Cell Count 3.27 M/uL (4.33-5.43)
[2020-02-08 04:51] LABS: Potassium 3.4 mmol/L (3.5-5.1)
[2020-02-08] MEDS: PANTOPRAZOLE 40MG TABLET PO SCH (05:43)
[2020-02-08] MEDS: carvediloL 25 MG TAB PO SCH ×2 (05:43→17:49)
[2020-02-08] MEDS ORDERED: POTASSIUM CL SA 10 MEQ TAB PO ONE (09:00)
--- NOTE | 2020-02-08 10:03 | P.PN ---
Subjective Date of Service: 02/08/20 Primary Care Provider: None, seen at [facility]; Nephrology-Dr. Skinner Chief Complaint: Congestive heart failure Subjective Pt with hx of HEp C , CKD due to MPGN admitted with SOB and fluid overload Today Cr stable edema cont to improve , now on lasix drip and metolazone Pt on room air , no SOB will cont lasix drip for now to be discharged on lasix and metolazone and steroids Physical exam general: AAOX3, NAD , obese Neck; Supple, No elevated JVD hear: RRR, normal S1,2 no murmur or rub Chest: CTAB, no rlaes or wheezes Abdomen: Soft , Nt Extremities _+1 edema , no ulcer A/P YOSELIN on CKD IIIb/V due to fluid overload CKD due to MPGN from HCV cont steroids avoid NSAID and contrast HCV F/U with GI Hypokalemia due to diuresis replace prn metabolic bone disease cont calcitriol and calcium Liver mass F/U with GI Physical Examination - Vital Signs Temperature: 98.1 F Blood Pressure: 127/79 Pulse: 67 Respirations: 20 Pulse Ox (%): 97 - Studies Medications List Reviewed: Yes
[2020-02-08] MEDS: ASPIRIN EC 81 MG TAB PO SCH (10:34)
[2020-02-08] MEDS: NICOTINE 21 MG/PAT TD SCH (10:34)
[2020-02-08] MEDS: FERROUS SULFATE 325 MG TAB PO SCH (10:34)
[2020-02-08] MEDS: HEPARIN 5000 UNIT/ML 1 ML VIAL SQ SCH ×2 (10:34→21:02)
[2020-02-08] MEDS: predniSONE 20 MG TAB PO SCH (10:34)
[2020-02-08] MEDS: AMLODIPINE 10 MG TAB PO SCH (10:35)
[2020-02-08] MEDS: METOLAZONE 5 MG TABLET PO SCH (10:35)
[2020-02-08] MEDS: SPIRONOLACTONE 25 MG TABLET PO SCH ×2 (10:36→21:01)
[2020-02-08] MEDS: HYDRALAZINE HCL 25 MG TABLET PO SCH ×3 (10:36→21:02)
[2020-02-08] MEDS: CALCITROL 0.25 MCG CAP PO SCH (10:44)
--- NOTE | 2020-02-08 19:03 | P.PN ---
Subjective Date of Service: 02/07/20 Patient diuresing more effectively; will monitor weight and UOP Review of Systems 10-point ROS is otherwise unremarkable Physical Examination - Vital Signs Temperature: 97.5 F Blood Pressure: 149/83 Pulse: 64 Respirations: 16 Pulse Ox (%): 98 - Physical Exam General: Alert, In no apparent distress, Oriented x3, Obese HEENT: Atraumatic, PERRLA, EOMI Neck: Supple, JVD not distended Respiratory: Clear to auscultation bilaterally, Normal air movement Cardiovascular: Regular rate/rhythm, Normal S1 S2 Gastrointestinal: Normal bowel sounds, No tenderness Musculoskeletal: No tenderness Integumentary: No rashes Neurological: Normal speech, Normal tone, Normal affect Lymphatics: No axilla or inguinal lymphadenopathy - Studies Medications List Reviewed: Yes Assessment & Plan - Problems (Diagnosis) (1) Membranoproliferative glomerulonephritis Status: Acute (2) Proteinuria Status: Acute (3) Hypoalbuminemia Status: Acute (4) Edema due to hypoalbuminemia Status: Acute (5) Anasarca associated with disorder of kidney Status: Acute (6) Diastolic heart failure Status: Acute (7) Renal failure Status: Acute Qualifiers: Chronic kidney disease stage: stage 4 (severe) (8) Coronary artery disease Status: Acute (9) Hypertension Status: Acute - Plan Plan: 1. Patient started diurese more effectively. Patient has started dropping a few lb. Continue with albumin Lasix drip. 2. Monitor renal function closely 3. Monitor electrolytes closely 4. Continue with Daily weight 5. Monitor protein level 6. Increase protein in diet so we can keep his serum albumin elevated. This will help prevent 3rd spacing 7. Patient is on IV steroids which also can increased fluid retention but he needs this to maintain his renal function. Continue this for now 8. GI and DVT prophylaxis Discharge Plan: Home Plan to discharge in: Greater than 2 days - Advance Directives Does patient have a Living Will: No Does patient have a Durable POA for Healthcare: No - Code Status/Comfort Care Code Status Assessed: Yes Code Status: Full Code Critical Care: No Time Spent Managing PTS Care (In Minutes): 35
[2020-02-08] MEDS: ATORVASTATIN 20 MG TAB PO SCH (21:01)
[2020-02-09] MEDS: ALBUMIN HUMAN 25% 12.5 GM, FUROSEMIDE 100 MG in NA CHLORIDE 0.9% 40 ML IV SCH ×3 (02:15→10:38)
[2020-02-09 04:28] LABS: Absolute Lymphocytes (CBC) 1.3 K/uL (0.7-4.9); Basophils % 0.3 % (0-1.3); Hematocrit 27.9 % (39.6-49.0); Lymphocytes % 8.8 % (15.3-44.8); MPV 8.1 fL (7.6-11.3)
[2020-02-09] MEDS ORDERED: POTASSIUM CL SA 10 MEQ TAB PO ONE ×2 (06:00→14:00)
[2020-02-09] MEDS: PANTOPRAZOLE 40MG TABLET PO SCH (06:57)
[2020-02-09] MEDS: carvediloL 25 MG TAB PO SCH ×2 (06:57→17:03)
[2020-02-09] MEDS: FUROSEMIDE 40 MG/4 ML VIAL IV SCH ×3 (09:00→21:00)
[2020-02-09] MEDS: ASPIRIN EC 81 MG TAB PO SCH (09:15)
[2020-02-09] MEDS: METOLAZONE 5 MG TABLET PO SCH (09:15)
[2020-02-09] MEDS: HYDRALAZINE HCL 25 MG TABLET PO SCH ×3 (09:16→21:21)
[2020-02-09] MEDS: SPIRONOLACTONE 25 MG TABLET PO SCH ×2 (09:16→21:21)
[2020-02-09] MEDS: FERROUS SULFATE 325 MG TAB PO SCH (09:16)
[2020-02-09] MEDS: AMLODIPINE 10 MG TAB PO SCH (09:17)
[2020-02-09] MEDS: predniSONE 20 MG TAB PO SCH (09:17)
[2020-02-09] MEDS: NICOTINE 21 MG/PAT TD SCH (09:18)
[2020-02-09] MEDS: HEPARIN 5000 UNIT/ML 1 ML VIAL SQ SCH ×2 (09:18→21:21)
[2020-02-09 11:47] LABS: Alpha Fetoprotein-Tumor Marker 3.7 ng/mL (<6.1)
[2020-02-09] MEDS: PROMOD 30 ML DOSE PO SCH ×2 (13:02→17:04)
[2020-02-09] MEDS ORDERED: POTASSIUM 25 MEQ EFFERV TAB PO ONE (14:00)
[2020-02-09 19:30] LABS: Hep C Virus RNA (PCR)log 6.51 log IU/mL; Hepatitis C Virus RNA (PCR)log 6.51 log IU/mL
[2020-02-09] MEDS: ATORVASTATIN 20 MG TAB PO SCH (21:21)
--- NOTE | 2020-02-10 00:07 | PN ---
Date of Progress Note: 02/09/2020 Subjective: This patient was admitted with acute kidney injury secondary to cryo, secondary to hep C, over volume. The patient was started on Lasix drip, started establishing good negative balance. Objective: Vital Signs: I saw the patient with a blood pressure of 138/84, pulse of 73. The patient had good urine output of 1400 negative of 3 L. The patient had lost 6 pounds from yesterday as overall. Chest: Faint rales at the base. Heart: S1, S2. Systolic murmur. Abdomen: Soft, nontender. Extremities: Plus edema. Neurologic: Alert. No focal. Laboratory Data: WBC 13.2, H and H 9.6/27.9, and platelets 421. Sodium 142, potassium 3, bicarb 33, BUN 80, creatinine 2.4, GFR of 35, calcium 8.7. Current Medications: The patient on include; 1. Lasix drip at 20 mg per hour. 2. Aspirin. 3. Ferrous sulfate. 4. Amlodipine 10. 5. Carvedilol 25 b.i.d. 6. Hydralazine 25 t.i.d. 7. Spironolactone 50 b.i.d. 8. Metolazone. 9. Pantoprazole. 10. Prednisone 60 daily. 11. Calcitriol. Assessment And Plan: 1. Acute kidney injury, secondary to cryoglobulinemia. Recovered back to baseline. I will switch the patient from Lasix drip to Lasix bolus and the patient is going to be cleared from the renal standpoint for discharge planning. 2. Hypokalemia. We will supplement. I am going to go ahead and check for his magnesium. Continue spironolactone. 3. Anasarca, secondary to nephrotic range proteinuria, recovering very well. Continue diuresis. 4. Hep C with cryo. The patient was set up for outpatient hep C treatment. Currently, we will continue prednisone tapering dose. 5. Disproportion in BUN and creatinine is secondary to prednisone and diuresis. Prednisone is going to be tapered down. We will follow up. Time spent coordinating the care, discuss him with all of our team members including othere teamcenter consultant and hospitalist and [id number] with the patient and please go out of 35 min SIMON Voice ID: [id number] Report ID: [id number] MTDD
[2020-02-10] MEDS ORDERED: POTASSIUM CL SA 10 MEQ TAB PO ONE ×2 (02:09→02:26)
[2020-02-10 06:31] LABS: Absolute Lymphocytes (CBC) 1.8 K/uL (0.7-4.9); Basophils % 0.9 % (0-1.3); Hematocrit 26.3 % (39.6-49.0); Lymphocytes % 10.3 % (15.3-44.8); MPV 8.3 fL (7.6-11.3); RBC Red Blood Cell Count 3.07 M/uL (4.33-5.43)
[2020-02-10 06:33] LABS: Magnesium 1.6 mg/dL (1.8-2.4); Potassium 3.3 mmol/L (3.5-5.1)
[2020-02-10] MEDS: PANTOPRAZOLE 40MG TABLET PO SCH (07:13)
[2020-02-10] MEDS: carvediloL 25 MG TAB PO SCH (07:14)
[2020-02-10] MEDS ORDERED: POTASSIUM 25 MEQ EFFERV TAB PO ONE (08:07)
[2020-02-10] MEDS ORDERED: Magnesium Sulfate 2gm IVPB 2 G/50 ML BAG IV ONE (08:07)
--- NOTE | 2020-02-10 08:13 | P.PN ---
Subjective Date of Service: 02/08/20 Patient doing much better. His weight is down to 260 from 268. He has had a significant mental urine output. He is continuing to improve. Will start ProMod for protein supplementation. Spoke with Nephrology and possible discharge in the next 24-48 hr. His weight is roughly around 190lbs and when he left [facility] he was at 25lbs. Continue with plan of care. Review of Systems 10-point ROS is otherwise unremarkable Physical Examination - Vital Signs Temperature: 97.7 F Blood Pressure: 143/86 Pulse: 78 Respirations: 16 Pulse Ox (%): 97 - Physical Exam General: Alert, In no apparent distress, Oriented x3 Respiratory: Clear to auscultation bilaterally, Normal air movement, Crackles/rales Cardiovascular: Regular rate/rhythm, Normal S1 S2, Systolic murmur Gastrointestinal: Normal bowel sounds, Soft and benign, Non-distended, No tenderness Musculoskeletal: No clubbing, No tenderness, Swelling Integumentary: No rashes Neurological: Normal strength at 5/5 x4 extr, Sensation intact, Cranial nerves 3-12 intact Lymphatics: No axilla or inguinal lymphadenopathy - Studies Medications List Reviewed: Yes Assessment & Plan - Problems (Diagnosis) (1) Membranoproliferative glomerulonephritis Current Visit: Yes Status: Acute (2) Proteinuria Current Visit: Yes Status: Acute (3) Hypoalbuminemia Current Visit: Yes Status: Acute (4) Edema due to hypoalbuminemia Current Visit: Yes Status: Acute (5) Anasarca associated with disorder of kidney Current Visit: Yes Status: Acute (6) Diastolic heart failure Current Visit: Yes Status: Acute (7) Renal failure Current Visit: Yes Status: Acute Qualifiers: Chronic kidney disease stage: stage 4 (severe) (8) Coronary artery disease Current Visit: No Status: Acute (9) Hypertension Current Visit: No Status: Acute - Plan Plan: Continue with plan of care as mentioned below 1. Albumin/Lasix drip. Patient w/ 6lbs of weight loss 2. Monitor renal function closely 3. Monitor electrolytes closely 4. Daily weight 5. Monitor protein level 6. Increase protein in diet 7. Patient is on IV steroids-tapering dose and steroids 8. GI and DVT prophylaxis Discharge Plan: Home Plan to discharge in: Greater than 2 days - Advance Directives Does patient have a Living Will: No Does patient have a Durable POA for Healthcare: No - Code Status/Comfort Care Code Status Assessed: Yes Code Status: Full Code Critical Care: No Time Spent Managing PTS Care (In Minutes): 35
--- NOTE | 2020-02-10 08:15 | P.PN ---
Subjective Date of Service: 02/09/20 Patient has had a weight loss of 15 lb in the last couple of days. Anticipate discharge tomorrow. Patient is feeling much better. Review of Systems 10-point ROS is otherwise unremarkable Physical Examination - Vital Signs Temperature: 97.7 F Blood Pressure: 143/86 Pulse: 78 Respirations: 16 Pulse Ox (%): 97 - Physical Exam General: Alert, In no apparent distress, Oriented x3 Respiratory: Crackles/rales Cardiovascular: Regular rate/rhythm, Normal S1 S2 Gastrointestinal: Normal bowel sounds, No tenderness Musculoskeletal: No tenderness, Swelling Neurological: Sensation intact, Cranial nerves 3-12 intact, Normal affect - Studies Medications List Reviewed: Yes Assessment & Plan - Problems (Diagnosis) (1) Membranoproliferative glomerulonephritis Current Visit: Yes Status: Acute (2) Proteinuria Current Visit: Yes Status: Acute (3) Hypoalbuminemia Current Visit: Yes Status: Acute (4) Edema due to hypoalbuminemia Current Visit: Yes Status: Acute (5) Anasarca associated with disorder of kidney Current Visit: Yes Status: Acute (6) Diastolic heart failure Current Visit: Yes Status: Acute (7) Renal failure Current Visit: Yes Status: Acute Qualifiers: Chronic kidney disease stage: stage 4 (severe) (8) Coronary artery disease Current Visit: No Status: Acute (9) Hypertension Current Visit: No Status: Acute - Plan Plan: Continue with plan of care as mentioned below 1. Albumin/Lasix drip. Patient w/ 15lbs of weight loss; anticipate discharge tomorrow morning 2. Monitor renal function closely 3. Monitor electrolytes closely 4. Daily weight 5. Monitor protein level 6. Increase protein in diet 7. Patient is on IV steroids-tapering dose and steroids 8. GI and DVT prophylaxis - Advance Directives Does patient have a Living Will: No Does patient have a Durable POA for Healthcare: No - Code Status/Comfort Care Code Status: Full Code
[2020-02-10] MEDS: predniSONE 20 MG TAB PO SCH (08:41)
[2020-02-10] MEDS: ASPIRIN EC 81 MG TAB PO SCH (08:42)
[2020-02-10] MEDS: POTASSIUM CL SA 10 MEQ TAB PO ONE (08:42)
[2020-02-10] MEDS: SPIRONOLACTONE 25 MG TABLET PO SCH (08:43)
[2020-02-10] MEDS: METOLAZONE 5 MG TABLET PO SCH (08:44)
[2020-02-10] MEDS: FERROUS SULFATE 325 MG TAB PO SCH (08:45)
[2020-02-10] MEDS: AMLODIPINE 10 MG TAB PO SCH (08:45)
[2020-02-10] MEDS: HYDRALAZINE HCL 25 MG TABLET PO SCH (08:45)
[2020-02-10] MEDS: FUROSEMIDE 40 MG/4 ML VIAL IV SCH (08:46)
[2020-02-10] MEDS: HEPARIN 5000 UNIT/ML 1 ML VIAL SQ SCH (08:46)
[2020-02-10] MEDS: NICOTINE 21 MG/PAT TD SCH (08:47)
[2020-02-10 09:13] VITALS: O2SAT 98
[2020-02-10] MEDS: PROMOD 30 ML DOSE PO SCH (09:34)
--- NOTE | 2020-02-10 09:52 | P.PN ---
Subjective Date of Service: 02/10/20 Primary Care Provider: None, seen at [facility]; Nephrology-Dr. Skinner Chief Complaint: Congestive heart failure Subjective Pt with hx of HEp C , CKD due to MPGN admitted with SOB and fluid overload Today no new complaints CR improving to be discharged on lasix and metolazone and steroids F/U with nephrology clinic in 1-2 wks Physical exam general: AAOX3, NAD , obese Neck; Supple, No elevated JVD hear: RRR, normal S1,2 no murmur or rub Chest: CTAB, no rlaes or wheezes Abdomen: Soft , Nt Extremities +1 edema , no ulcer A/P YOSELIN on CKD IIIb/V improving due to fluid overload CKD due to MPGN from HCV cont steroids avoid NSAID and contrast HCV F/U with GI Hypokalemia due to diuresis replace prn metabolic bone disease cont calcitriol and calcium Liver mass F/U with GI Physical Examination - Vital Signs Temperature: 97.7 F Blood Pressure: 161/86 Pulse: 63 Respirations: 16 Pulse Ox (%): 97 - Studies Medications List Reviewed: Yes
[2020-02-12 15:19] VITALS: BP 143/86; TEMP 97.7
--- NOTE | 2020-02-12 15:21 | P.DS ---
Discharge Date: 02/10/20 Primary Care Provider: None, seen at [facility]; Nephrology-Dr. Skinner Disposition: ROUTINE DISCHARGE Discharge Condition: GOOD Reason for Admission: Congestive heart failure Consultations: Mortgage Processing Manager - Problems (1) Membranoproliferative glomerulonephritis Status: Acute (2) Proteinuria Status: Acute (3) Hypoalbuminemia Status: Acute (4) Edema due to hypoalbuminemia Status: Acute (5) Anasarca associated with disorder of kidney Status: Acute (6) Diastolic heart failure Status: Acute (7) Renal failure Status: Acute Qualifiers: Chronic kidney disease stage: stage 4 (severe) (8) Coronary artery disease Status: Acute (9) Hypertension Status: Acute Brief History of Present Illness: Patient is a 49-year-old male with history of hypertension, CAD with prior stent, CHF, hepatitis-C, tobacco abuse and chronic renal disease. Patient reported increasing shortness of breaths over the last 24 hr. He also reported increasing edema to the lower extremities up to the thigh region. Patient mentioned that he had been at the hospital-[facility] about a month ago. He was seen for similar reasons. He was initially seen at [facility] then transfer to [place]. There he had a heart catheterization, renal biopsy, and IV diuresis. He has not recall any other specifics. He does mention that he ran out of his diuretic medication within the past week. He was without medication for at least 3 days. He also reports that his Lasix had been increased from 20 mg daily to 120 mg twice daily. He denied any significant chest pain. He did report some nausea and vomiting. He does mention a fluid restriction at home. He came to the ER for further evaluation. In the ER patient was evaluated. Blood pressures were elevated at 160/107. Room air saturations 97% on room air. Patient slightly tachypneic. Blood gases showed a pH is 7.45, PA CO2 of this 35, PO2 of 68. Sodium 147 come potassium 3.1, BUN of 36, creatinine 4.2 with a GFR of 18. Troponin 0.19, magnesium 1.2, calcium 6.1. AST 45, ALT 43. Prior creatinine in 2018 was 0.97 with a GFR of greater than 90 at that time. Chest x-ray showed pleural effusions. Patient was given IV diuretic therapy in the emergency room. Patient admitted for further evaluation and treatment. When I saw the patient ER, patient appeared stable. Patient on nasal cannula. Blood pressure slightly improved. Patient further reports that he has underlying hepatitis-C. He is in the process of getting treated for this. He has not followed up with any of his specialist. He has no PCP. Most of his care has been done through [facility]. Hospital Course: Patient was diuresed very effectively. Patient lost about 18 lb during hospital stay. Patient is feeling much better. He will need to follow-up with Gastroenterology to get treatment for hepatitis-C which should help his nephrotic syndrome. Continue aggressively diuresing as an outpatient. He needs to continue with protein intake to a allowed or decrease 3rd spacing. At this time, patient is stable for discharge home with outpatient follow-up. Return to the ER if symptoms progressively worsen or if shortness of breath worsens. Vital Signs/Physical Exam: Temp Pulse Resp BP Pulse Ox 97.7 F 78 16 143/86 H 97 02/12/20 15:19 02/12/20 15:19 02/12/20 15:19 02/12/20 15:19 02/12/20 15:19 General: Alert, In no apparent distress, Oriented x3 Laboratory Data at Discharge: WBC 17.4 K/uL (4.3-10.9) H D 02/10/20 05:50 Hgb 8.9 g/dL (13.6-17.9) L 02/10/20 05:50 Hct 26.3 % (39.6-49.0) L 02/10/20 05:50 Plt Count 348 K/uL (152-406) 02/10/20 05:50 PT Cancelled 01/31/20 07:30 INR Cancelled 01/31/20 07:30 Sodium 142 mmol/L (136-145) 02/10/20 05:50 Potassium 3.3 mmol/L (3.5-5.1) L 02/10/20 05:50 BUN 84 mg/dL (7-18) H 02/10/20 05:50 Creatinine 2.19 mg/dL (0.55-1.3) H 02/10/20 05:50 Glucose 113 mg/dL (74-106) H 02/10/20 05:50 Phosphorus 4.9 mg/dL (2.5-4.9) 02/06/20 05:18 Magnesium 1.6 mg/dL (1.8-2.4) L 02/10/20 05:50 Total Bilirubin 0.2 mg/dL (0.2-1.0) 02/03/20 05:27 AST 16 U/L (15-37) 02/03/20 05:27 ALT 22 U/L (12-78) 02/03/20 05:27 Alkaline Phosphatase 65 U/L (45-117) 02/03/20 05:27 Troponin I 0.14 ng/mL (0.0-0.045) H 01/31/20 20:25 Triglycerides 155 mg/dL (<150) H 02/01/20 04:05 Cholesterol 203 mg/dL (<200) H 02/01/20 04:05 HDL Cholesterol 42 mg/dL (40-60) 02/01/20 04:05 Cholesterol/HDL Ratio 4.83 02/01/20 04:05 Home Medications: Atorvastatin Calcium [Lipitor*] 20 mg PO BEDTIME 01/31/20 Ferrous Sulfate [Feosol] 325 mg PO DAILY 01/31/20 Furosemide [Lasix*] 40 mg PO BID 01/31/20 Pantoprazole Sodium [Protonix] 40 mg PO DAILY 01/31/20 carvediloL [Carvedilol] 25 mg PO BIDWM 01/31/20 Amlodipine [Norvasc*] 10 mg PO DAILY #30 tab 02/10/20 Calcitrol [Rocaltrol*] 0.5 mcg PO Q48H #14 cap 02/10/20 Furosemide [Lasix] 80 mg PO BID #60 tablet 02/10/20 Hydralazine [Apresoline*] 25 mg PO TID #90 tab 02/10/20 Pantoprazole [Protonix Tab*] 40 mg PO DAILYAC #30 tab 02/10/20 Spironolactone [Aldactone*] 50 mg PO BID #60 tab 02/10/20 carvediloL [Coreg*] 25 mg PO BID 6AM 6PM #60 tab 02/10/20 metOLazone [Zaroxolyn*] 5 mg PO DAILY #30 tab 02/10/20 predniSONE [Prednisone*] 60 mg PO DAILY #46 tab 02/10/20 New Medications: Spironolactone [Aldactone*] 50 mg PO BID #60 tab Hydralazine [Apresoline*] 25 mg PO TID #90 tab carvediloL [Coreg*] 25 mg PO BID 6AM 6PM #60 tab Furosemide [Lasix] 80 mg PO BID #60 tablet Amlodipine [Norvasc*] 10 mg PO DAILY #30 tab predniSONE [Prednisone*] 60 mg PO DAILY #46 tab Pantoprazole [Protonix Tab*] 40 mg PO DAILYAC #30 tab Calcitrol [Rocaltrol*] 0.5 mcg PO Q48H #14 cap metOLazone [Zaroxolyn*] 5 mg PO DAILY #30 tab Patient Discharge Instructions: OK TO DC IV AND DC HOME. FOLLOW-UP WITH PRIMARY CARE PROVIDER IN 1-2 WEEKS. FOLLOW-UP WITH NEPHROLOGY AND GASTROENTEROLOGY IN 1-2 WEEKS-PATIENT IS TOLD THE IMPORTANCE OF TREATMENT OF HIS HEPATITIS-C TO BENEFIT HIS RENAL DISEASE. RETURN TO THE ER IF symptoms worsen. CALL or TEXT DR. DONALDSON AT [phone] IF ANY QUESTIONS REGARDING HOSPITAL STAY. PLEASE CALL THE FLOOR AT [phone] IF ANY MEDICATION OR NURSING QUESTIONS. Diet: Low sodium Activity: Fall precautions Followup: Marie Gann MD [ACTIVE - CAN ADMIT] - Asif Dougherty MD [ACTIVE - CAN ADMIT] - Calvin Thakur MD [ACTIVE - CAN ADMIT] - Time spent managing pt's care (in minutes): 35
== END 2020-02-10 10:10 | disposition home or self-care (01) | DRG 291 ==
LOC: ER 07:07 → ERHOLD 09:28 → 2ND 12:20
PROVIDERS: ADMIT Family Medicine; ATTEND Hospitalist
DX: I13.0 Hypertensive heart and chronic kidney disease with heart failure and stage 1 through stage 4 chronic kidney disease, or unspecified chronic kidney disease (principal); I50.33 Acute on chronic diastolic (congestive) heart failure; N18.4 Chronic kidney disease, stage 4 (severe); N17.9 Acute kidney failure, unspecified; N05.5 Unspecified nephritic syndrome with diffuse mesangiocapillary glomerulonephritis; I25.2 Old myocardial infarction; I25.10 Atherosclerotic heart disease of native coronary artery without angina pectoris; B19.20 Unspecified viral hepatitis C without hepatic coma; K21.9 Gastro-esophageal reflux disease without esophagitis; F17.210 Nicotine dependence, cigarettes, uncomplicated; E11.22 Type 2 diabetes mellitus with diabetic chronic kidney disease; D63.8 Anemia in other chronic diseases classified elsewhere; E87.6 Hypokalemia; E21.1 Secondary hyperparathyroidism, not elsewhere classified; D89.1 Cryoglobulinemia; G47.30 Sleep apnea, unspecified; R80.9 Proteinuria, unspecified; R16.0 Hepatomegaly, not elsewhere classified; R77.8 Other specified abnormalities of plasma proteins; Z79.52 Long term (current) use of systemic steroids; Z79.899 Other long term (current) drug therapy; Z95.5 Presence of coronary angioplasty implant and graft; Z86.73 Personal history of transient ischemic attack (TIA), and cerebral infarction without residual deficits; Z91.14 Patient's other noncompliance with medication regimen; Z88.5 Allergy status to narcotic agent; Z20.828 Contact with and (suspected) exposure to other viral communicable diseases
CPT/HCPCS: 36415; 71045; 71046; 74176; 76377; 76770; 80048; 80053; 80061; 80069; 80074; 80076; 80307; 81003; 82105; 82390; 82550; 82553; 82652; 82805; 83735; 83970; 84132; 84439; 84443; 84484; 85025; 85610; 86038; 86255; 86704; 86706; 87520; 87522; 93005; 93306; 94660; 94760; 96365; 96375; 99285; J0610; J1644; J1940; J2930; J3475; J3480; J7040; J7512; P9047; U0003

== ENCOUNTER 2023-10-16 11:49 | Emergency (ER) | payer OTHER ==
[2023-10-16] MEDS ORDERED: ACETAMINOPHEN 500 MG TAB ONE (12:03)
[2023-10-16] MEDS ORDERED: methocarbamoL 500 MG TAB ONE (12:04)
[2023-10-16] MEDS ORDERED: KETOROLAC 30 MG/ML INJ ONE (12:04)
--- NOTE | 2023-10-16 13:08 | RAD REPORT ---
EXAM DESCRIPTION: RAD - Ankle Left 3 View - 10/16/2023 1:01 pm CLINICAL HISTORY: ankle pain COMPARISON: No comparisons FINDINGS: There is moderate soft tissue swelling about the ankle. No acute fracture or dislocation.
--- NOTE | 2023-10-16 13:29 | ER ---
Nurse's Notes [facility] Name: Macario Hubbard Age: 53 yrs Sex: Male : 1970 Arrival Date: 10/16/2023 Time: 11:49 Bed 17 Private MD: Diagnosis: Sprain of unspecified ligament of right ankle Presentation: 10/15 11:50 Chief complaint: EMS states: SPONTANEOUS ANKLE PAIN, LEFT. Coronavirus screen: At this bp time, the client does not indicate any symptoms associated with coronavirus-19. Ebola Screen: No symptoms or risks identified at this time. Initial Sepsis Screen: Does the patient meet any 2 criteria? No. Patient's initial sepsis screen is negative. Does the patient have a suspected source of infection? No. Patient's initial sepsis screen is negative. Risk Assessment: Do you want to hurt yourself or someone else? Patient reports no desire to harm self or others. Note S/S 2 WK. Onset of symptoms is unknown. 11:50 Method Of Arrival: EMS: [facility] bp 11:50 Acuity: TIGRE 3 bp Triage Assessment: 11:51 General: Appears uncomfortable, Behavior is cooperative, appropriate for age, anxious. bp Pain: Complains of pain in left lateral ankle. Musculoskeletal: Reports pain in left lateral ankle. Historical: - Allergies: 11:51 Tramadol HCl; bp - PMHx: 11:51 CHF; CVA; Diabetes - NIDDM; Hepatitis; High Cholesterol; Myocardial infarction; bp - Immunization history:: Adult Immunizations up to date. - Infectious Disease History:: Denies. - Social history:: Smoking status: Patient denies any tobacco usage or history of. Screenin:15 [facility] ED Fall Risk Assessment (Adult) History of falling in the last 3 months, me1 including since admission No falls in past 3 months (0 pts) Confusion or Disorientation No (0 pts) Intoxicated or Sedated No (0 pts) Impaired Gait No (0 pts) Mobility Assist Device Used No (0 pt) Altered Elimination No (0 pt) Score/Fall Risk Level 0 - 2 = Low Risk Maintained a safe environment, Provided non-skid footwear, Hourly rounding (assess needs \\T\\ fall precautionary measures) done. Abuse screen: Denies threats or abuse. Nutritional screening: No deficits noted. Tuberculosis screening: No symptoms or risk factors identified. Assessment: 12:15 General: Appears uncomfortable, obese, well groomed, well developed, Behavior is calm, me1 cooperative, appropriate for age. Pain: Complains of pain in left leg and left lateral ankle Pain does not radiate. Pain currently is 10 out of 10 on a pain scale. Quality of pain is described as dull, Pain began gradually, Is continuous, Alleviated by exercise, typically gets relief by "walking it off" and making laps around the block. Unable to bear weight today without severe pain. Neuro: Level of Consciousness is awake, alert, obeys commands, Oriented to person, place, time, situation, Appropriate for age. Cardiovascular: Patient's skin is warm and dry. Respiratory: Airway is patent Respiratory effort is even, unlabored, Respiratory pattern is regular, symmetrical. GI: No signs and/or symptoms were reported involving the gastrointestinal system. : No signs and/or symptoms were reported regarding the genitourinary system. EENT: No signs and/or symptoms were reported regarding the EENT system. Derm: Skin is intact, is healthy with good turgor, Skin is pink, warm \\T\\ dry. Musculoskeletal: Reports pain in left leg and left lateral ankle. Vital Signs: 11:50 BP 140 / 95; Pulse 70; Resp 20; Temp 98; Pulse Ox 99% ; bp 12:24 BP 125 / 79; Pulse 70; Resp 16; Pulse Ox 96% on R/A; me1 13:30 BP 125 / 83; Pulse 63; Resp 17; Pulse Ox 97% on R/A; me1 ED Course: 11:49 Patient arrived in ED. bp 11:50 Will Vick MD is Attending Physician. ec2 11:51 Triage completed. bp 11:51 Arm band placed on. bp 12:14 Stephanie Wilkins RN is Primary Nurse. me1 12:15 Patient has correct armband on for positive identification. Bed in low position. Call me1 light in reach. Side rails up X2. Provided Education on: POC. Verbalized understanding. . Client placed on continuous cardiac and pulse oximetry monitoring. NIBP monitoring applied. Pulse ox on. NIBP on. 12:15 No provider procedures requiring assistance completed. me1 13:03 Ankle Left 3 View XRAY In Process Unspecified. EDMS 14:02 IV discontinued, intact, bleeding controlled, No redness/swelling at site. Pressure me1 dressing applied. Administered Medications: 12:14 Drug: Methocarbamol PO 500 mg PO once Route: PO; me1 13:43 Follow up: Response: No adverse reaction; Pain is decreased me1 12:14 Drug: Ketorolac IVP 15 mg IVP once Route: IVP; Site: right upper arm; me1 13:43 Follow up: Response: No adverse reaction; Pain is decreased me1 12:14 Drug: Acetaminophen PO 1000 mg PO once Route: PO; me1 13:43 Follow up: Response: No adverse reaction; Pain is decreased me1 Medication: 12:15 VIS not applicable for this client. me1 Outcome: 13:28 Discharge ordered by . ec2 14:01 Discharged to home ambulatory, with crutches, me1 14:01 Condition: stable 14:01 Condition: stable 14:01 Discharge instructions given to patient, Instructed on discharge instructions, follow up and referral plans. medication usage, crutch walking, Demonstrated understanding of instructions, follow-up care, medications, Prescriptions given X 1, 14:03 Patient left the ED. me1 Signatures: Dispatcher [employer] Norm Moss RN RN Stephanie Wilkins RN RN me1 Will Vick MD MD 2
--- NOTE | 2023-10-16 13:29 | EDPHYS ---
Physician Documentation [facility] Name: Macario Hubbard Age: 53 yrs Sex: Male : 1970 Arrival Date: 10/16/2023 Time: 11:49 Bed 17 Private MD: ED Physician Will Vick HPI: 10/15 11:51 This 53 yrs old Black Male presents to ER via EMS with complaints of Ankle Injury. ec2 11:51 Patient arrives today for evaluation of left ankle pain. Patient has been having ec2 intermittent ankle pain ongoing for the past 2 weeks, intermittent, no specific alleviating or exacerbating factors, now is having increased pain with weightbearing. No falls injuries or trauma. Not take any medications for the pain.. Historical: - Allergies: 11:51 Tramadol HCl; bp - PMHx: 11:51 CHF; CVA; Diabetes - NIDDM; Hepatitis; High Cholesterol; Myocardial infarction; bp - Immunization history:: Adult Immunizations up to date. - Infectious Disease History:: Denies. - Social history:: Smoking status: Patient denies any tobacco usage or history of. ROS: 11:51 Constitutional: as per hpi ec2 Exam: 11:51 Constitutional: GEN: NAD Head: atraumatic Eyes: EOMI Ears: External ears are ec2 normal. CV: regular rate LUNGS: no respiratory distress ABD: non-distended SKIN: no evidence of rashes MSK: no evidence of trauma, left ankle with slight swelling, no erythema, no warmth, intact distal neurovascular status. TTP noted. NEURO: moves all extremities equally Vital Signs: 11:50 BP 140 / 95; Pulse 70; Resp 20; Temp 98; Pulse Ox 99% ; bp 12:24 BP 125 / 79; Pulse 70; Resp 16; Pulse Ox 96% on R/A; me1 13:30 BP 125 / 83; Pulse 63; Resp 17; Pulse Ox 97% on R/A; me1 MDM: 11:50 Patient medically screened. ec2 11:51 Data reviewed: vital signs. ED course: Patient arrives today for left ankle pain. ec2 Examination remarkable for ankle findings as above. Will obtain radiograph, treat the patient's pain. Differential diagnosis includes gout, bony fracture, ankle sprain.. 13:13 ED course: X-ray shows no bony fracture, soft tissue swelling noted. Will discharge ec2 home with prescription for Robaxin and instructed in [id number] medications. Suspect ligamentous versus soft tissue contusion.. 10/15 11:50 Order name: Ankle Left 3 View XRAY; Complete Time: 13:13 ec2 10/15 13:28 Order name: Christiano Wrap; Complete Time: 14:00 ec2 10/15 13:45 Order name: Crutches; Complete Time: 14:00 ec2 10/15 13:45 Order name: Crutch Training; Complete Time: 14:00 ec2 Administered Medications: 12:14 Drug: Methocarbamol PO 500 mg PO once Route: PO; me1 13:43 Follow up: Response: No adverse reaction; Pain is decreased me1 12:14 Drug: Ketorolac IVP 15 mg IVP once Route: IVP; Site: right upper arm; me1 13:43 Follow up: Response: No adverse reaction; Pain is decreased me1 12:14 Drug: Acetaminophen PO 1000 mg PO once Route: PO; me1 13:43 Follow up: Response: No adverse reaction; Pain is decreased me1 Disposition Summary: 10/16/23 13:28 Discharge Ordered Notes: Location: Home ec2 Condition: Stable ec2 Diagnosis - Sprain of unspecified ligament of right ankle ec2 Followup: ec2 - With: Private Physician - When: - Reason: Re-evaluation by your physician Discharge Instructions: - Discharge Summary Sheet ec2 - Ankle Sprain, [id number] ec2 Forms: - Medication Reconciliation Form ec2 - Antibiotic Education ec2 - Prescription Opioid Use ec2 - Patient Portal Instructions ec2 - Leadership Thank You Letter ec2 Prescriptions: - methocarbamol 500 mg Oral tablet - take 2 tablets ORAL route 4 times per day; 20 tablet; Refills: 0, Product ec2 Selection Permitted Signatures: Dispatcher [employer] Norm Moss RN RN bp Eddleman, Michelle, RN RN de1 Will Vick MD MD ec2
[2023-10-16 14:24] VITALS: BP 125/83; TEMP 98; O2SAT 97
== END 2023-10-16 14:03 | disposition home or self-care (01) ==
LOC: ER 11:49
DX: S93.402A Sprain of unspecified ligament of left ankle, initial encounter (principal)
CPT/HCPCS: 96374; 99284

== ENCOUNTER 2024-08-30 09:44 | Emergency (ER) | payer MEDICAID, OTHER ==
[2024-08-30] MEDS ORDERED: LIDOCAINE 1% MPF 5 ML VIAL ONE (10:04)
[2024-08-30] MEDS ORDERED: TDAP (DIPHTH,PERTUSS(ACELL),TET VAC) 0.5 ML VIAL IMVAC ONE (10:04)
[2024-08-30] MEDS ORDERED: HYDROCODONE/APAP 5/325 MG TAB ONE (10:34)
--- NOTE | 2024-08-30 10:39 | RAD REPORT ---
EXAMINATION: CT HEAD WITHOUT CONTRAST CT CERVICAL SPINE WITHOUT CONTRAST CLINICAL INDICATION: Head and neck injury status post fall. Head and neck pain TECHNIQUE: Axial CT images from the skull base to the vertex without intravenous contrast. Axial CT i mages through the cervical spine were obtained without intravenous contrast. Sagittal and coronal reformatted images were created from the data set. Coronal and sagittal reformatted images were creat ed from the data set. One or more of the following dose reduction techniques were used: Automated exposure control, adjustment of the mA and/or kV according to patient size, and/or iterative reconstr uction. Unless otherwise specified, incidental findings do not require dedicated imaging follow-up. [id number]. Comparison: 2016 FINDINGS: An intracranial bleed is not seen. Ventricles are normal in caliber. No significant hypodensity within the brain No extra-axial fluid collection. No fluid within the sinuses/mastoids No fracture or dislocation is seen involving the cervical spine. IMPRESSION: No acute intracranial abnormality noted A cervical fracture is not seen. If the patient continues to have symptoms to suggest acute BANK OPERATIONS OFFICER/spinal pathology then MRI would be rec ommended
--- NOTE | 2024-08-30 10:41 | RAD REPORT ---
Exam:Shoulder Left 2+ Views HISTORY: Left shoulder pain FINDINGS: No fracture seen. Chronic widening of the AC joint. Vascular stent in place.
--- NOTE | 2024-08-30 11:27 | EDPHYS ---
Physician Documentation [facility] Name: Macario Hubbard Age: 53 yrs Sex: Male : 1970 Arrival Date: 08/30/2024 Time: 09:44 Bed 14 Private MD: ED Physician Robel Hilliard HPI: 08/30 10:10 This 53 yrs old Black Male presents to ER via EMS with complaints of Facial Injury. ms3 10:10 53-year-old male with past medical history of CVA, CHF, diabetes, hepatitis, ms3 hyperlipidemia, myocardial infarction presents to the emergency department status post fall while going upstairs. Patient states he was climbing to the 13th floor of a ship when he became tired and did not lift his leg high enough for the last step causing him to fall. Patient states he is having moderate pain. He denies any alleviating factors. Patient states the pain is worse with movement of the left shoulder.. Historical: - Allergies: 09:46 Tramadol HCl; ld1 - PMHx: 09:46 CVA; CHF; Diabetes - NIDDM; Hepatitis; High Cholesterol; Myocardial infarction; ld1 - Immunization history:: Adult Immunizations up to date. - Infectious Disease History:: Denies. - Social history:: Smoking status: Patient denies any tobacco usage or history of. ROS: 10:10 Constitutional: Negative for fever, and chills. Cardiovascular: Negative for chest ms3 pain, and palpitations. Respiratory: Negative for shortness of breath, cough, wheezing, and pleuritic chest pain, Abdomen/GI: Negative for abdominal pain, nausea, vomiting, diarrhea, and constipation, 10:10 MS/extremity: Positive for Left shoulder pain, 10:10 Skin: Negative for Upper lip laceration, Exam: 10:10 Constitutional: This is a well developed, well nourished patient who is awake, alert, ms3 and in no acute distress. Chest/axilla: Normal chest wall appearance and motion. Nontender with no deformity. Cardiovascular: Regular rate and rhythm with a normal S1 and S2. No gallops, murmurs, or rubs. Normal PMI, no JVD. No pulse deficits. Respiratory: Lungs have equal breath sounds bilaterally, clear to auscultation and percussion. No rales, rhonchi or wheezes noted. No increased work of breathing, no retractions or nasal flaring. Abdomen/GI: Soft, non-tender, with normal bowel sounds. No distension or tympany. No guarding or rebound. No evidence of tenderness throughout. 10:10 Skin: 2 cm upper lip laceration. Does not involve vermilion border. Vital Signs: 09:48 BP 124 / 75; Pulse 71; Resp 18; Temp 97.8(TE); Pulse Ox 96% on R/A; Height 5 ft. 11 in. ld1 ; Pain 8/10; 09:48 Weight 108.86 kg; ld1 10:54 Pulse 71; Resp 18; Pulse Ox 96% on R/A; ld1 09:48 Pain Scale: Adult ld1 MDM: 09:49 Medical Screening Exam initiated ms3 10:10 Differential diagnosis: Contusion of Hematoma on Laceration of Intracranial bleed- ms3 Concussion without LOC. 11:29 Data reviewed: vital signs, nurses notes, and as a result, I will discharge patient. I ms3 considered the following discharge prescriptions or medication management in the emergency department Medications were administered in the Emergency Department. See MAR. Counseling: I had a detailed discussion with the patient and/or guardian regarding the historical points, exam findings, and any diagnostic results supporting the discharge/admit diagnosis, radiology results, the need for outpatient follow up, to return to the emergency department if symptoms worsen or persist or if there are any questions or concerns that arise at home. Special discussion: I discussed with the patient/guardian in detail that at this point there is no indication for admission to the hospital. It is understood, however, that if the symptoms persist or worsen the patient needs to return immediately for re-evaluation. ED course: Discussed imaging with patient. Patient to follow-up with primary care physician in 2 to 3 days for reevaluation. Patient understands and agrees with plan. All questions were answered. Return precautions discussed include worsening symptoms, or any other concerns.. 08/30 09:53 Order name: Shoulder Left (2 View) XRAY; Complete Time: 10:52 ms3 08/30 10:16 Order name: Head C Spine Mpr Wo Con; Complete Time: 10:52 EDMS 08/30 10:02 Order name: Dressing - Wound; Complete Time: 10:14 ms3 08/30 10:02 Order name: Gloves, Sterile; Complete Time: 10:14 ms3 08/30 10:02 Order name: Setup Suture Tray; Complete Time: 10:14 ms3 Administered Medications: 10:14 Drug: Boostrix Tdap IM 0.5 ml IM once; as a single dose Route: IM; Site: left deltoid; iw 10:44 Follow up: Response: No adverse reaction ld1 10:44 Follow up: Response: (VIS) Vaccine information sheet provided today. Questions and/or ld1 concerns addressed. VIS edition date: Dec 07, 2020. 10:44 Drug: Lidocaine Infiltration (1 %) 20 ml 20 ml Infiltration once; to bedside {Note: ld1 Administered by Dr. Wright.} Volume: 20 ml; Route: Infiltration; 10:44 Drug: HYDROcodone-acetaminophen PO 5 mg-325 mg 1 tabs PO once Route: PO; ld1 11:35 Follow up: Response: No adverse reaction ld1 Disposition Summary: 08/30/24 11:27 Discharge Ordered Notes: Location: Home ms3 Condition: Stable ms3 Diagnosis - Laceration without foreign body of lip ms3 - Fall on same level, unspecified ms3 Followup: ms3 - With: Sharif García DO - When: 2 - 3 days - Reason: Recheck today's complaints Discharge Instructions: - Discharge Summary Sheet ms3 - Mouth Laceration, [id number] ms3 Forms: - Medication Reconciliation Form ms3 - Antibiotic Education ms3 - Prescription Opioid Use ms3 - Patient Portal Instructions ms3 - Leadership Thank You Letter ms3 - Work release form ld1 Prescriptions: - Peridex 0.12 % Mucous Membrane Mouthwash - swish 15 milliliter BUCCAL route after meals and before bedtime; 600 ms3 milliliter; Refills: 0, Product Selection Permitted Signatures: Dispatcher [employer] Meghan Corado RN Robel Sinclair DO DO ms3 Nadia Hilliard RN RN ld1 Corrections: (The following items were deleted from the chart) 10:16 09:53 Head Brain Wo [id number].RAD.BRZ ordered. EDMS EDMS
--- NOTE | 2024-08-30 11:27 | ER ---
Nurse's Notes [facility] Name: Macario Hubbard Age: 53 yrs Sex: Male : 1970 Arrival Date: 08/30/2024 Time: 09:44 Bed 14 Private MD: Diagnosis: Laceration without foreign body of lip;Fall on same level, unspecified Presentation: 08/30 09:48 Chief complaint: EMS states: toned out due to patient tripping and falling -injuring ld1 face and right arm. Coronavirus screen: At this time, the client does not indicate any symptoms associated with coronavirus-19. Ebola Screen: No symptoms or risks identified at this time. Initial Sepsis Screen: Does the patient meet any 2 criteria? No. Patient's initial sepsis screen is negative. Does the patient have a suspected source of infection? No. Patient's initial sepsis screen is negative. Risk Assessment: Do you want to hurt yourself or someone else? Patient reports no desire to harm self or others. Onset of symptoms was August 30, 2024. 09:48 Method Of Arrival: EMS: [facility] ld1 09:48 Acuity: TIGRE 3 ld1 Triage Assessment: 09:48 General: Appears in no apparent distress. uncomfortable, Behavior is calm, cooperative, ld1 appropriate for age. Pain: Complains of pain in left arm and mouth Pain does not radiate. Pain currently is 8 out of 10 on a pain scale. Quality of pain is described as throbbing, Pain began suddenly, Is continuous. EENT: No signs and/or symptoms were reported regarding the EENT system. Neuro: Level of Consciousness is awake, alert, obeys commands, Oriented to person, place, time, situation. Cardiovascular: Capillary refill < 3 seconds Patient's skin is warm and dry. Respiratory: Airway is patent Respiratory effort is even, unlabored. GI: Abdomen is round non-distended. : No signs and/or symptoms were reported regarding the genitourinary system. Derm: No signs and/or symptoms reported regarding the dermatologic system. Musculoskeletal: No signs and/or symptoms reported regarding the musculoskeletal system. Historical: - Allergies: 09:46 Tramadol HCl; ld1 - PMHx: 09:46 CVA; CHF; Diabetes - NIDDM; Hepatitis; High Cholesterol; Myocardial infarction; ld1 - Immunization history:: Adult Immunizations up to date. - Infectious Disease History:: Denies. - Social history:: Smoking status: Patient denies any tobacco usage or history of. Screenin:55 [facility] ED Fall Risk Assessment (Adult) History of falling in the last 3 months, ld1 including since admission Yes- single mechanical fall (1 pt) Confusion or Disorientation No (0 pts) Intoxicated or Sedated No (0 pts) Impaired Gait No (0 pts) Mobility Assist Device Used No (0 pt) Altered Elimination No (0 pt) Score/Fall Risk Level 0 - 2 = Low Risk Oriented to surroundings, Hourly rounding (assess needs \T\ fall precautionary measures) done. Abuse screen: Denies threats or abuse. Denies injuries from another. Nutritional screening: No deficits noted. Tuberculosis screening: No symptoms or risk factors identified. Assessment: 10:54 Reassessment: See triage assessmnet. General: Appears in no apparent distress. ld1 comfortable, Behavior is calm, cooperative, appropriate for age. Vital Signs: 09:48 BP 124 / 75; Pulse 71; Resp 18; Temp 97.8(TE); Pulse Ox 96% on R/A; Height 5 ft. 11 in. ld1 ; Pain 8/10; 09:48 Weight 108.86 kg; ld1 10:54 Pulse 71; Resp 18; Pulse Ox 96% on R/A; ld1 09:48 Pain Scale: Adult ld1 ED Course: 09:46 Patient arrived in ED. ld1 09:46 Nadia Hilliard RN is Primary Nurse. ld1 09:48 Arm band placed on right wrist. ld1 09:49 Robel Hilliard DO is Attending Physician. ms3 09:49 Triage completed. ld1 10:14 Shoulder Left (2 View) XRAY In Process Unspecified. EDMS 10:17 Head C Spine Mpr Wo Con In Process Unspecified. EDMS 10:55 Patient has correct armband on for positive identification. Bed in low position. Call ld1 light in reach. Side rails up X2. Pulse ox on. NIBP on. Door closed. Noise minimized. Warm blanket given. 11:25 Sharif García DO is Referral Physician. ms3 11:35 No provider procedures requiring assistance completed. Patient did not have IV access ld1 during this emergency room visit. Administered Medications: 10:14 Drug: Boostrix Tdap IM 0.5 ml IM once; as a single dose Route: IM; Site: left deltoid; iw 10:44 Follow up: Response: No adverse reaction ld1 10:44 Follow up: Response: (VIS) Vaccine information sheet provided today. Questions and/or ld1 concerns addressed. VIS edition date: Dec 07, 2020. 10:44 Drug: Lidocaine Infiltration (1 %) 20 ml 20 ml Infiltration once; to bedside {Note: ld1 Administered by Dr. Wright.} Volume: 20 ml; Route: Infiltration; 10:44 Drug: HYDROcodone-acetaminophen PO 5 mg-325 mg 1 tabs PO once Route: PO; ld1 11:35 Follow up: Response: No adverse reaction ld1 Medication: 10:55 Vaccine Information Statement (VIS) provided today. Questions and/or concerns ld1 addressed. VIS edition date: August 30, 2024. Outcome: 11:27 Discharge ordered by MD. ms3 11:35 Discharged to home ambulatory, with family, ld1 11:35 Condition: stable 11:35 Discharge instructions given to patient, Instructed on discharge instructions, follow up and referral plans. medication usage, Demonstrated understanding of instructions, follow-up care, medications, Prescriptions given X 1, 11:35 Patient left the ED. ld1 Signatures: Dispatcher [employer] Meghan Corado, Robel Sinclair RN, DO DO ms3 Nadia Hilliard RN RN ld1
[2024-08-31 03:55] VITALS: BP 124/75; TEMP 97.8; O2SAT 96
== END 2024-08-30 11:35 | disposition home or self-care (01) ==
LOC: ER 09:44
DX: S01.511A Laceration without foreign body of lip, initial encounter (principal); M25.512 Pain in left shoulder; W10.8XXA Fall (on) (from) other stairs and steps, initial encounter; Z23 Encounter for immunization
CPT/HCPCS: 70450; 72125; 73030; 90715; J2003